=== PATIENT | male | born 1950 | race Caucasian/White ===

== ENCOUNTER 2024-10-18 06:06 | Day surgery (SDC) | payer MEDICARE, OTHER, SELFPAY ==
[2024-10-18] VITALS (12 sets, daily range): BP systolic 127–158; BP diastolic 59–95; BMI 37.0
[2024-10-18 07:14] LABS: Glucose - Point of Care 133 mg/dl (70-99)
[2024-10-18] MEDS: NSS 408 ML IV (07:15)
[2024-10-18 09:11] LABS: ACT-LR - POC 273 Seconds (116-155)
[2024-10-18] MEDS: NSS 1000 IV (09:32)
--- NOTE | 2024-10-18 09:34 | ITS.CL.CATH ---
[facility] - Catheterization
Cardiac Catheterization
Procedure Report:
CARDIAC CATHETERIZATION REPORT
Date of Procedure: 10/18/2024
Referring: Ese Kilgore M.D.
INDICATION: Known coronary artery disease, abnormal stress test, preoperative hip surgery.
PROCEDURE:
1. Left heart catheterization.
2. Coronary angiography.
3. Successful IFR of the LAD.
A total of 45 minutes of procedural/moderate sedation was utilized. An independent medical staffing coordinator was present to assist with and help manage the patient's level of consciousness and physiologic status.
ACCESS:
1. 6 Albanian right radial artery using a modified Seldinger technique.
CATHETERS:
1. 5 Albanian JR4.
2. 5 Albanian AL-1.
3. 6 Albanian JL 4 guiding catheter.
HEMODYNAMIC DATA
Weight (kg): 135.6
AO (s/d/x, mmHg): 93/63/75
LV (s/x mmHg): 93/15
LEFT VENTRICULOGRAPHY: Not performed.
CORONARY ANGIOGRAPHY
Dominance: Right.
Left Main: Short, wide, bifurcating vessel. There is no coronary artery disease.
LAD: Normal size vessel giving rise to 1 significant diagonal. There are tandem 50% lesions throughout the proximal and mid LAD with a long, tubular stenosis in the mid vessel.
Ramus: Congenitally absent.
Circumflex: Large size, nondominant vessel giving rise to 1 large obtuse marginal which subsequently bifurcates into an upper and lower branch. There is a 75% lesion in the proximal circumflex before the obtuse marginal bifurcation. There is a
subtotal occlusion of the distal AV groove circumflex. There is a 40% lesion in the origin of the upper branch of OM1.
RCA: Medium size, dominant vessel with an anterior takeoff requiring an AL-1 catheter for full engagement. There is a 90% ostial lesion.
INTERVENTION(S)
1. Successful IFR of the tandem 50% lesions in the mid LAD, demonstrating occlusive disease (IFR = 0.80).
Narrative:
The decision was made to perform physiologic testing. The diagnostic catheter was removed over a wire and exchanged for a(n) 6 Albanian JL4 guiding catheter. The guiding catheter was advanced into the ascending aorta and seated in the left main
coronary artery. Additional heparin was given to obtain an ACT greater than 250 seconds. An iFR wire was zeroed outside of the body, then inserted into the guiding sheath. The wire was advanced and the transducer was normalized just outside of the
guiding catheter tip. The wire was advanced into the mid LAD, beyond the tubular 50% lesion. Three iFR measurements were taken. The lesion was determined to be occlusive (0.80). The wire normalized on pullback, confirming the fidelity of
measurement. The catheter and guidewire were disengaged and removed over a standard J-wire.
Closure Device: Vascular band.
Radiation (mGy): 1020.63
DAP (cm2.Gy): 81.1663
Fluoroscopy time (minutes): 9.4
CONCLUSIONS
1. Right dominant circulation with an anterior takeoff of the RCA requiring an AL-1 catheter for engagement, and 90% lesion in the ostium of the right coronary artery, 75% lesion in the proximal circumflex, a 40% lesion in the origin of the upper
branch of OM1, subtotal occlusion of the terminal AV groove circumflex and an occlusive, tubular 50% lesion in the mid LAD (IFR = 0.80).
2. Top normal filling pressures (LVEDP = 15 mmHg at 135.6 kg).
RECOMMENDATIONS:
1. Expectant management after cardiac catheterization via right radial approach.
2. Limited weight bearing on the right wrist for one week.
3. Consultation with CT surgery regarding optimal revascularization strategy.
4. Aggressive secondary prevention with high-dose, high potency statin.
5. The patient would benefit from GLP-1 analogs given his diabetes and coronary artery disease combined with obesity.
Copy to: Ese Kilgore M.D., Geovany John D.O.
Gee Santos DO, FACC, FACP
[2024-10-18 09:40] LABS: Glucose - Point of Care 140 mg/dl (70-99)
== END 2024-10-18 12:25 | disposition home or self-care (01) ==
LOC: CATH 06:06
PROVIDERS: ATTENDING PHYSICIAN Internal Medicine Cardiovascular Disease; CONSULT PHYSICIAN Thoracic Surgery (Cardiothoracic Vascular Surgery); FAMILY PHYSICIAN Family Medicine; OTHER PHYSICIAN Internal Medicine Cardiovascular Disease
DX: I25.10 Atherosclerotic heart disease of native coronary artery without angina pectoris (principal); R94.39 Abnormal result of other cardiovascular function study; I10 Essential (primary) hypertension; E78.5 Hyperlipidemia, unspecified; E11.9 Type 2 diabetes mellitus without complications; E66.9 Obesity, unspecified; Z68.36 Body mass index [BMI] 36.0-36.9, adult; Z82.49 Family history of ischemic heart disease and other diseases of the circulatory system; Z79.82 Long term (current) use of aspirin; Z79.84 Long term (current) use of oral hypoglycemic drugs
CPT/HCPCS: 99152; 99153; 93799; C1769; C1894; 76937; 82962; 85347; 93005; 93458; Q9967

== ENCOUNTER → 2024-11-15 10:02 | Outpatient (REF) | payer MEDICARE, OTHER, SELFPAY ==
--- NOTE | 2024-11-15 11:21 | CARDSERVLU ---
Echocardiogram with Lumason completed after protocol screening completed. Allergies verified.
Patent IV site: _Rt wrist____
IV site flushed with 0.9% NaCl pre and post administration.
Diluted bolus method utilized to enhance visualization of ventricular hernandes.
Total volume given: ___2.0 mL
Patient tolerated all procedures well without complications.
#22 pranay placed Rt wrist. Lumason given. INT d/c'd. dsg applied and pressure held.
== END ==
LOC: RCS 10:02
PROVIDERS: ATTENDING PHYSICIAN Thoracic Surgery (Cardiothoracic Vascular Surgery); FAMILY PHYSICIAN Family Medicine
DX: Z01.810 Encounter for preprocedural cardiovascular examination (principal)
CPT/HCPCS: 93306; Q9950

== ENCOUNTER 2024-11-19 05:00 | Inpatient (IN) | payer MEDICARE, OTHER, SELFPAY ==
[2024-11-09 08:18] VITALS: BMI 39.2
[2024-11-09 09:03] LABS: % Basophils 0.7 % (0-2); % Eosinophils 5.3 % (0-6); % Immature Granulocytes 1.4 % (0-0.5); % Lymphocytes 17.4 % (20.5-51.1); % Monocytes 6.1 % (1.7-9.3); % Neutrophils 69.1 % (42.2-75.2); Absolute Basophils 0.1 10^3/uL (0-0.2); Absolute Eosinophils 0.5 10^3/uL (0-0.7); Absolute Immature Granulocytes 0.1 10^3/uL (0-0.05); Absolute Lymphocytes 1.7 10^3/uL (1.2-3.4); Absolute Monocytes 0.6 10^3/uL (0.1-0.6); Absolute Neutrophils 6.6 10^3/uL (1.4-6.5); Hematocrit 43.5 % (39.0-52.0); Mean Corp Hgb Conc. 32.2 g/dL (33.0-37.0); Mean Corpuscular Hgb 25.9 pg (27.0-31.0); Mean Corpuscular Volume 80.4 fL (80.0-94.0); Mean Platelet Volume 10.1 fL (7.4-10.4); Nucleated Red Blood Cells % 0 % (-); Platelet Count 250 10^3/uL (130-400); Red Blood Cell Count 5.41 10^6/uL (4.70-6.10); Red Cell Dist. Width 16.7 % (11.5-14.5); White Blood Cell Count 9.5 10^3/uL (4.8-10.8)
[2024-11-09 09:16] LABS: APTT 33.8 Sec (23.4-35.0); INR 1.03; PT 13.8 Sec (11.4-14.6)
[2024-11-09 09:44] LABS: ALT (SGPT) 33 U/L (0-50); AST (SGOT) 27 U/L (17-59); Albumin 3.8 g/dl (3.5-5.0); Alkaline Phosphatase 104 U/L (38-126); Blood Urea Nitrogen 18 mg/dl (9-20); Calcium 9.2 mg/dl (8.4-10.2); Carbon Dioxide 28 mmol/L (22-30); Chloride 108 mmol/L (98-107); Direct Bilirubin 0.3 mg/dl (0.0-0.4); Estimated Creatinine Clearance > 125 ml/min; Glucose 110 mg/dl (70-99); Glycohemoglobin (HgbA1c) 6.1 % (4.0-5.6); Potassium 4.7 mmol/L (3.5-5.1); Sodium 145 mmol/L (135-145); Total Bilirubin 0.8 mg/dl (0.2-1.3); Total Protein 7.4 g/dl (6.3-8.2); eGFR > 60.00
--- NOTE | 2024-11-09 10:58 | CM ---
spoke to pt and in PAT's, we discussed preop teaching including driving and sternal restrictions. he is prev indep, lives with his in a [facility] home with a first floor set up. there are 3 steps to enter. he has a cane, walker and shower
chair and he is here with crutches and explained that he had a Right hip revision in Apr that became septic, he remains on doxycycline. he needs 2 more surgeries on the right hip in the future. he did not pass his cardiac clearance and presents
for CABG. he has the cardiac educ book, soap and instructions. we disucssed his possibly needing to go to a rehab/[facility] after dc, he would be agreeable to this plan. plan is for CABG 11/19, cm role explained and all questions answered.
[2024-11-09 12:20] LABS: Urine Albumin 2+ (Neg - Trace); Urine Bilirubin Negative (Negative); Urine Character Clear (Clear); Urine Color Yellow; Urine Glucose Negative (Negative); Urine Ketone Negative (Negative); Urine Leukocyte 1+ (Negative); Urine Nitrite Negative (Negative); Urine Occult Blood Negative (Negative); Urine Urobilinogen Negative (Neg - 1+)
[2024-11-09 12:28] LABS: Urine Bacteria Few (Negative); Urine Red Blood Cell 0-2 /HPF (0-2); Urine Squamous Cell 0-2 /LPF (Few); Urine White Cell 0-2 /HPF (0-5)
[2024-11-19] VITALS (9 sets, daily range): BP systolic 96–172; BP diastolic 58–83; BMI 37.3
[2024-11-19] MEDS: BACTROBAN 2% OINTMENT 1 APPLIC NASAL ×2 (05:42→20:12)
[2024-11-19] MEDS: MAGNESIUM OXIDE 500 MG PO (05:42)
[2024-11-19] MEDS: PROTONIX 40 MG PO (05:42)
[2024-11-19] MEDS: LOPRESSOR 25 MG PO (05:42)
--- NOTE | 2024-11-19 06:14 | PTCARENOTE ---
admitted pt into 2262. Full admission and med rec completed. pt confirmed 2 showers at home and NPO since midnight. Pt clipped, washed with CHG. pre op teaching given, all questions answered
[2024-11-19 07:31] LABS: ACT+ - POC 109 Seconds (82-134)
--- NOTE | 2024-11-19 07:54 | CM ---
Reviewed chart. Mr. Nielsen is in the operating room today. Prior to admission he resides two story home with his spouse with three steps to enter. He has a first floor set-up Prior to admission he was ambulating with crutches. He has crutches,
walker, single point cane and a shower chair at home. Will need to see his current functional level to see if he will have any skilled care needs. Medical work-up in progress, The discharge plan is to return home with his spouse and a home visit
by the Transitional Care Nurse verses some level of inpatient rehab. when medically stable.
[2024-11-19 07:56] LABS: Urine Albumin 1+ (Neg - Trace); Urine Bilirubin Negative (Negative); Urine Character Clear (Clear); Urine Color Yellow; Urine Glucose Negative (Negative); Urine Ketone Negative (Negative); Urine Leukocyte Negative (Negative); Urine Nitrite Negative (Negative); Urine Occult Blood Negative (Negative); Urine Specific Gravity 1.005 (<1.030); Urine Urobilinogen Negative (Neg - 1+)
[2024-11-19 08:38] LABS: Urine Amorphous Seen; Urine Mucus Few
[2024-11-19 08:40] LABS: Urine Hyaline Cast 0-2 /LPF (0-2)
[2024-11-19 08:41] LABS: Urine Red Blood Cell 0-2 /HPF (0-2); Urine White Cell 0-2 /HPF (0-5)
[2024-11-19 09:59] LABS: ACT+ - POC 563 Seconds (82-134)
[2024-11-19 10:12] LABS: B.E. - POC 1.5 mmol/L; Glucose - POC 118 mg/dl (70-99); HCO3 - POC 27 mmol/L (21-28); Hematocrit - POC 39 % PCV (42-52); Hemodilution- POC No; Hemoglobin Calculated - POC 13.3; Lactate - POC 1.47 mmol/L (0.36-0.75); O2 Saturation %Calculated-POC 99.4 % (94-98); PCO2 - POC 46 mmHg (35-48); PO2 - POC 158 mmHg (83-108); POC Comment PRE; Potassium - POC 3.8 mmol/L (3.5-5.1); Sodium - POC 144 mmol/L (136-145); Specimen Type - POC Arterial; pH - POC 7.38 (7.35-7.45)
[2024-11-19 10:24] LABS: ACT+ - POC 554 Seconds (82-134)
[2024-11-19 10:42] LABS: B.E. - POC 0.7 mmol/L; Glucose - POC 164 mg/dl (70-99); HCO3 - POC 26 mmol/L (21-28); Hematocrit - POC 32 % PCV (42-52); Hemodilution- POC Yes; Hemoglobin Calculated - POC 10.7; Ionized Calcium - POC 1.06 mmol/L (1.15-1.33); Lactate - POC 0.68 mmol/L (0.36-0.75); PCO2 - POC 47 mmHg (35-48); PO2 - POC 403 mmHg (83-108); Potassium - POC 4.6 mmol/L (3.5-5.1); Sodium - POC 143 mmol/L (136-145); Specimen Type - POC Arterial; pH - POC 7.36 (7.35-7.45)
[2024-11-19 10:51] LABS: ACT+ - POC 453 Seconds (82-134)
[2024-11-19 11:11] LABS: B.E. - POC 2.1 mmol/L; Glucose - POC 195 mg/dl (70-99); HCO3 - POC 28 mmol/L (21-28); Hematocrit - POC 33 % PCV (42-52); Hemodilution- POC Yes; Hemoglobin Calculated - POC 11.3; Lactate - POC 1.16 mmol/L (0.36-0.75); O2 Saturation %Calculated-POC 99.9 % (94-98); PCO2 - POC 48 mmHg (35-48); PO2 - POC 286 mmHg (83-108); Potassium - POC 4.6 mmol/L (3.5-5.1); Sodium - POC 144 mmol/L (136-145); Specimen Type - POC Arterial; pH - POC 7.37 (7.35-7.45)
[2024-11-19 11:20] LABS: ACT+ - POC 504 Seconds (82-134)
[2024-11-19 11:41] LABS: B.E. - POC 3.6 mmol/L; Glucose - POC 173 mg/dl (70-99); HCO3 - POC 30 mmol/L (21-28); Hematocrit - POC 33 % PCV (42-52); Hemodilution- POC Yes; Hemoglobin Calculated - POC 11.1; Ionized Calcium - POC 1.14 mmol/L (1.15-1.33); Lactate - POC 1.58 mmol/L (0.36-0.75); O2 Saturation %Calculated-POC 99.9 % (94-98); PCO2 - POC 50 mmHg (35-48); PO2 - POC 287 mmHg (83-108); Sodium - POC 144 mmol/L (136-145); Specimen Type - POC Arterial; pH - POC 7.38 (7.35-7.45)
[2024-11-19 11:50] LABS: ACT+ - POC 429 Seconds (82-134)
[2024-11-19 12:20] LABS: B.E. - POC -0.4 mmol/L; Glucose - POC 160 mg/dl (70-99); HCO3 - POC 26 mmol/L (21-28); Hematocrit - POC 34 % PCV (42-52); Hemodilution- POC Yes; Hemoglobin Calculated - POC 11.7; Lactate - POC 2.17 mmol/L (0.36-0.75); O2 Saturation %Calculated-POC 99.9 % (94-98); PCO2 - POC 46 mmHg (35-48); PO2 - POC 339 mmHg (83-108); Potassium - POC 4.5 mmol/L (3.5-5.1); Sodium - POC 144 mmol/L (136-145); Specimen Type - POC Arterial; pH - POC 7.35 (7.35-7.45)
[2024-11-19 12:25] LABS: ACT+ - POC 433 Seconds (82-134)
[2024-11-19 13:05] LABS: B.E. - POC 1.8 mmol/L; Glucose - POC 146 mg/dl (70-99); HCO3 - POC 28 mmol/L (21-28); Hematocrit - POC 37 % PCV (42-52); Hemodilution- POC Yes; Hemoglobin Calculated - POC 12.5; Ionized Calcium - POC 1.14 mmol/L (1.15-1.33); Lactate - POC 2.39 mmol/L (0.36-0.75); O2 Saturation %Calculated-POC 99.9 % (94-98); PCO2 - POC 51 mmHg (35-48); PO2 - POC 354 mmHg (83-108); Potassium - POC 4.6 mmol/L (3.5-5.1); Sodium - POC 144 mmol/L (136-145); Specimen Type - POC Arterial; pH - POC 7.35 (7.35-7.45)
[2024-11-19 13:08] LABS: ACT+ - POC 104 Seconds (82-134)
[2024-11-19 13:12] LABS: Glucose - POC 160 mg/dl (70-99); HCO3 - POC 24 mmol/L (21-28); Hematocrit - POC 33 % PCV (42-52); Hemodilution- POC Yes; Hemoglobin Calculated - POC 11.3; Lactate - POC 2.27 mmol/L (0.36-0.75); O2 Saturation %Calculated-POC 99.9 % (94-98); PCO2 - POC 40 mmHg (35-48); PO2 - POC 256 mmHg (83-108); POC Comment POST; Sodium - POC 145 mmol/L (136-145); Specimen Type - POC Arterial; pH - POC 7.38 (7.35-7.45)
[2024-11-19] MEDS: TYLENOL PO ×2 (13:33→23:09)
--- NOTE | 2024-11-19 13:35 | W.CVOR.SURPR ---
CVOR Surgeon Immed Pre Op
-
I have examined this patient prior to performance of the scheduled procedure.
The patient's condition is unchanged from the time of the dictated/written History and
Physical and the patient is able to undergo the scheduled procedure.
--- NOTE | 2024-11-19 13:36 | W.IMMPOSTOP ---
Addendum entered and electronically signed by Matthew Bonds MD 11/19/24 16:35:
[id number]
Original Note:
Surgical Immed Post Op Note
-
CARDIAC SURGERY OPERATIVE NOTE:
Preoperative Dx:
Multivessel CAD
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
Postoperative Dx:
Same
Procedures:
1) Median sternotomy
2) Takedown of ARVIND (narrow pedicle)
3) RLE GSV harvest/prep
4) CABG x 4 (ARVIND to LAD, GSV to D1, GSV to OM1, GSV to RPDA)
5) ELAA
Surgeon:
Matthew Bonds M.D.
Assistants:
Luan Wade P.A.-C.
Caryl Campos P.A.-C.
Anesthesia:
Bernard Kathleen M.D.
Perfusion:
Fariba Elizondo C.C.P.; XC: 94min, CPB: 154min
Findings:
ARVIND was a very healthy conduit w/ serpentine course; large ELD 3.5mm; very brisk blood flow
GSV was healthy appearing conduit w/ variable wall thickness ([id number]) and variable ELD 2.5-3.5mm
LAD was visible on the epicardial surface, moderately dense scattered calcifications, minor calcifications around midpoint anastomosis; ELD 2.5mm
D1 was initially intramyocardial, but then was visible on the epicardial surface, despite a small appearing surface profile, ELD 2.5mm on arteriotomy, normal hernandes
OM1 was visible on the epicardial surface, normal hernandes w/ scant proximal calcifications, ELD 3.25mm
RPDA was visible on the epicardial surface, normal hernandes at midpoint anastomosis, ELD 2.00mm
MENDOZA was of windsock morphology w/ three distinct terminal lobes - nice visual appearance of clip at base
Good flow in all grafts on intraoperative transit-time U/S flow probe assessment
Initially bradycardic requiring temporary pacing w/ dobutamine pt. regained sinus w/ BBB in 60s
Post-ANTHONY: Normal LV/RV, stage I DD, mild MR, trace TR; MENDOZA confirmed excluded
Complications:
None; BBB
Implants:
CT x 4 (B/L pleural, inferior mediastinal, superior mediastinal)
Sternal wires x 6
Sternal 'Square' plate x 2; 4 - 14mm and 4 - 12mm screws
Sternal 'Butterfly' plate w/ 2 - 14mm and 2 - 12mm screws
Condition:
65 sinus w/ BBB; 116/45, CVP 17, 96%
GTTS: precedex 0.5, insulin 1, nicardipine 5, dobutamine 3
Stable, guarded to CVICU
[2024-11-19 14:15] LABS: Glucose - Point of Care 163 mg/dl (70-99)
--- NOTE | 2024-11-19 14:17 | W.PN.UPDATE ---
Addendum entered and electronically signed by WILI Cunningham 11/19/24 15:28:
Edit: Daptomycin to Doxycycline
Original Note:
Update Note
Progress Note Update
IV fluids:1500
Crystalloid: 1000
U.O.: 475
UF: 1300
Blood: None
Wires: None
Inotropes: Dobutamine
Pressors: None
Sedatives: precedex
NEURO: sedated on precedex, pupils +1mm B/L
RESP: #8OT @24cm> 14/550/40/8 Lungs clear B/L. 2 mediastinal (10cc on arrival) and R/L pleural (15cc on arrival) chest tubes to -20cm suction. Sanguineous drainage
CV: RRR +S1, S2, no S3, no rub, no murmur. Dermabond to median sternotomy. RIJ w/slicc
ABD: round, soft, no BS
EXT: no edema, +2/4 DP pulses B/L, no femoral bruit, Right LE DB wrap intact; Left radial A-line intact
: Shay with clear yellow urine
A/P: POD #0 s/p CABG x 4 (ARVIND to LAD, GSV to D1, GSV to OM1, GSV to RPDA)/ ELAA
ANTHONY: EF Nml
- wean and extubate
- Monitor CT and urine output
- Follow up labs and CXR
- Will start ASA tonight
- EKG pending and will send to cards
- bradycardic in OR; started on DTX
- Cards consulted
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
- Cont IV daptomycin; switch back to PO upon discharge
- Follows Dr. breann Gutiérrez at [facility]
# acute surgical blood loss anemia-expected
- trend CBC
# T2DM (A1C 6.1)
- insulin infusion x 48h
- resume metformin after insulin infusion
# Hyperlipidemia
- resume statin when tolerating PO
--- NOTE | 2024-11-19 14:19 | W.PN.CD ---
Addendum entered and electronically signed by Michael Zavala MD 11/19/24 16:37:
I saw and examined the patient.
The FOLDER MACHINE ADJUSTER's note was reviewed and I agree with the note.
Comment:
73M with CAD, HTN, HLD, & NIDDM, who had an abnormal stress test prior to orthopedic surgery (right hip revision R/T infection) which was abnormal. He had known CAD. Cardiac catheterization demonstrated MVCAD. He is S/P CABG x 4 (ARVIND to LAD, GSV to
D1, GSV to OM1, GSV to RPDA) by Dr. Bonds on 11/19/2024.
Intubated and sedated at time of my assessment. Nods to questions. Physical exam with regular rate and rhythm, no murmurs, no lower extremity edema, clear lungs.
Routine postoperative care per CT surgery. Wean dobutamine as tolerated. We will continue to follow along.
Original Note:
Today's Communication / Plan
-
Post operative mgmt per CT Surgery
Follow telemetry
Impression / Plan
-
I/P: 73M with CAD, HTN, HLD, & NIDDM, who had an abnormal stress test prior to orthopedic surgery (right hip revision R/T infection) which was abnormal. He had known CAD. Cardiac catheterization demonstrated MVCAD. He is here for CABG.
Outpatient rocket motor tester: Dr. Kilgore
CAD S/P CABG x 4 (ARVIND to LAD, GSV to D1, GSV to OM1, GSV to RPDA) by Dr. Bonds on 11/19/2024
-Pst ANTHONY without RWMA
-On dobutmaine
-EKG with sinus rhythm, first degree AV block & LBBB, LBBB is new
-Initially bradycardic requiring temporary pacing with dobutamine, now in sinus
-Follow telemetry
HTN, follow with recovery
HLD, on rosuvastatin 40mg, continue
NIDDM, Hgba1c 6.1%
Obesity, BMI 37, he would benefit from weight loss
SUBJECTIVE:
Post operative notes reviewed.
Physical Exam
Vital Signs/Labs
Vital Signs
Temp Pulse Resp BP Pulse Ox
97.7 F 65 20 159/83 94
11/19/24 05:55 11/19/24 14:10 11/19/24 05:55 11/19/24 05:55 11/19/24 14:10
11/18/24 11/19/24 11/20/24
06:59 06:59 06:59
Actual Weight 135.4 kg
PT 13.8 Sec (11.4-14.6) 11/09/24 08:29
INR 1.03 11/09/24 08:29
APTT 33.8 Sec (23.4-35.0) 11/09/24 08:29
Physical Exam
Constitutional: No acute distress and Comfortable
EENT: Anicteric and Moist mucous membranes
Cardiovascular: Rhythm & rate is regular, S1S2 is normal and Murmur/rub/gallop absent
Respiratory: Lungs clear to auscul.
GI: Soft, Distention absent, Flat and Non tender
Neuro/Psych: Other (sedated on mechanical ventilation)
Other: Skin (warm and dry)
Data Reviewed
-
Date of Service: November 19, 2024
[2024-11-19 14:22] LABS: HCO3 23.2 mmol/L (21-28); Ionized Calcium 1.17 mMOL/L (1.15-1.33); O2 Saturation % 96.6 % (94-98); PCO2 45 mmHg (35-48); PO2 73 mmHg (83-108); Potassium 4.1 mMOL/L (3.5-5.1); Sodium 138 mMOL/L (136-145); pH 7.32 (7.35-7.45)
[2024-11-19 14:25] LABS: Hematocrit 34.4 % (39.0-52.0); Hemoglobin 11.2 g/dL (13.0-18.0); Mixed Venous O2 Saturation 75.9 %; Platelet Count 174 10^3/uL (130-400)
--- NOTE | 2024-11-19 14:25 | CON.INTV ---
Consultation
Consultation Request
Date/Time Consultation Requested: 11/19
Date/Time Consultation Performed: 11/19
Reason for Consultation: Critical care
Medical History
-
History of Present Illness:
History obtained from the chart and outpatient records as patient currently intubated and sedated. 73-year-old male with history of hypertension, hyperlipidemia, who is scheduled for right hip revision for chronic infection. Patient apparently had
an episode of syncope in September, workup revealed abnormal stress test, cardiac catheterization revealed multivessel coronary disease, EF 54%. Patient is now status post CABG 11/19/2024. We are asked out from critical care standpoint. Presently
patient is on nifedipine, dobutamine. He also remains on insulin, Precedex. He remains on volume-cycled ventilation, PEEP of 8.
.
PMH: Hypertension, hyperlipidemia, diabetes, history of syncope with negative neurological workup, history of morbid obesity. There is also history of right hip replacement 2005, appendectomy 1997, left hip replacement 2011, right hip revision
2012, 2023 complicated by wound awaiting treatment
Past Medical History
Past Medical History: None (See above)
Past Surgical History: None (See above)
Social History
Tobacco: Non-smoker
Alcohol: None
Drug: None
Personal:
Living: With Family
Employment: Retired
Family History
Family History: Other (Mother from bypass surgery complications. Father from stroke/aortic aneurysm. There is a family history of aortic aneurysm. 1 brother with heart failure, 1 sister healthy)
Allergies / Home Medications
Allergies
Allergy/AdvReac Type Severity Reaction Status Date / Time
hydromorphone [From Dilaudid] Allergy Nausea / Verified 11/05/24 11:51
Vomiting
Home Medications
�Medication �Instructions �Recorded �Confirmed �Last Taken �Type
aspirin 81 mg tablet,delayed 81 mg PO DAILY Blood clot 01/30/21 11/19/24 11/18/24 07:30 History
release prevention/tx
carvedilol 12.5 mg tablet 12.5 mg PO BID Blood pressure 01/30/21 11/19/24 11/16/24 17:30 History
diclofenac sodium 75 mg 75 mg PO BID Pain 01/30/21 11/19/24 11/18/24 17:30 History
tablet,delayed release
lisinopril 40 mg tablet 40 mg PO DAILY Blood pressure 01/30/21 11/19/24 11/16/24 17:30 History
metformin 500 mg tablet 500 mg PO BID Diabetes ##0 01/30/21 11/19/24 11/18/24 17:30 Rx
acetaminophen 500 mg tablet 500 mg PO Q6H PRN pain 10/18/24 11/19/24 10/30/24 12:00 History
amlodipine 5 mg tablet 5 mg PO BID 10/18/24 11/19/24 11/16/24 17:30 History
ascorbic acid (vitamin C) 500 mg 500 mg PO DAILY 10/18/24 11/19/24 11/13/24 12:00 History
tablet (Vitamin C)
atorvastatin 40 mg tablet 40 mg PO QPM #90 tabs 10/18/24 11/19/24 11/18/24 17:30 Rx
cephalexin 500 mg capsule 500 mg PO DAILYPRN PRN dental 10/18/24 11/19/24 09/27/24 History
procedures
cholecalciferol (vitamin D3) 25 25 mcg PO QPM 10/18/24 11/19/24 11/13/24 12:00 History
mcg (1,000 unit) capsule (Vitamin
D3)
diphenhydramine HCl 50 mg capsule 50 mg PO HS PRN sleep 10/18/24 11/19/24 11/18/24 21:30 History
doxycycline hyclate 100 mg tablet 100 mg PO BID 10/18/24 11/19/24 11/18/24 21:30 History
nitroglycerin 0.4 mg sublingual 0.4 mg sublingual [id number] PRN 10/18/24 11/19/24 11/03/24 Rx
tablet chest pain #25 tabs
triamcinolone acetonide 0.1 % 1 applic topical BIDPRN PRN ECZEMA 10/18/24 11/19/24 11/18/24 07:30 History
topical cream
Turmeric-Curcumin Supplement 1 cap PO DAILY 11/05/24 11/19/24 11/13/24 12:00 History
docusate sodium 100 mg tablet 100 mg PO PRN PRN CONSTIPATION 11/05/24 11/19/24 11/18/24 07:30 History
(Stool Softener)
Review of Systems
-
Unable to Obtain full review of systems at this time due to: Patient Intubation
All other systems: Negative unless noted
Vitals / Labs / Diagnostic Testing
Vital Signs
Temp Pulse Resp BP Pulse Ox
97.7 F 65 20 159/83 94
11/19/24 05:55 11/19/24 14:10 11/19/24 05:55 11/19/24 05:55 11/19/24 14:10
Laboratory Results
11/19/24
14:13
pH 7.32 L
pCO2 45
pO2 73 L
HCO3 23.2
O2 Delivery Level
Diagnostic Testing:
Physical Exam
-
HEENT: Normocephalic, Anicteric and Other (IJ, A-line, chest tube)
Cardiovascular: S1/S2, Regular Rhythm, Murmur (n) and Rub (n)
Respiratory: Wheeze (n), Rales (n), Rhonchi (n), Non-Labored Respirations and Other (ET tube)
GI: Soft, Non Distended (Obese) and Non Tender
Neurology: Other (Sedated)
Skin: Good Color and Other (No rash)
General: Comfortable
Assessment
-
73-year-old male with history of hypertension, hyperlipidemia, diabetes, multiple orthopedic procedures in the past, with right hip revision, chronic infection, found to have episode of syncope/ischemia workup positive, now status post CAB x 4 on
4/4/25
S/p CAB x4 on 11/19/24
Multivessel coronary disease
EF 54%
Postprocedure TTE with normal biventricular function
Preprocedure echo, enlarged RV normal function, could not measure PA pressures
Postoperative anemia
Multiple right hip revisions, complicated by infection
Awaiting revision at [facility]
Postoperative left bundle branch block per EKG
Conditions present prior to admission
Hypertension/hyperlipidemia
Type 2 diabetes
History of syncope, neurowork-up negative
Family history of coronary disease, aortic aneurysm
Plan/recommendations
At this time, patient is critically ill but remains stable
He is on/off nifedipine, now on dobutamine. Right IJ in place, [place]-Amy catheter not placed chest tube output minimal
Postoperative chest x-ray patchy infiltrate noted, chest tube in place
Postoperative EKG with left bundle branch block which is new
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
Awaiting eventual right hip total revision [facility]
History of diabetes, follow blood sugars. Currently on insulin drip
Continue ventilator wean. CT surgery protocol
Presently on PEEP of 8, Vt 500, FiO2 40%
Anticipate extubation later this afternoon
DVT prophylaxis per CT surgery protocol
Reviewed with critical care nursing
TCCT 31 min
[2024-11-19 14:32] LABS: INR 1.42; PT 17.6 Sec (11.4-14.6)
[2024-11-19 14:33] LABS: APTT 35.3 Sec (23.4-35.0)
[2024-11-19 14:37] LABS: Blood Urea Nitrogen 20 mg/dl (9-20); Estimated Creatinine Clearance 112 ml/min; Glucose 161 mg/dl (70-99); Magnesium 2.5 mg/dl (1.6-2.3)
[2024-11-19 15:03] LABS: Glucose - Point of Care 168 mg/dl (70-99)
[2024-11-19] MEDS: NSS 500 IV (15:05)
[2024-11-19] MEDS: ANCEF 15 MG IV (15:06)
[2024-11-19] MEDS: CALCIUM GLUCONATE 100 IV (15:07)
[2024-11-19] MEDS: ANCEF 10 IV (15:07)
[2024-11-19] MEDS: NEURONTIN PO ×2 (15:30→23:09)
[2024-11-19] MEDS: PACERONE PO ×2 (15:30→23:09)
[2024-11-19 15:39] LABS: B.E. -2.7 mmol/L; HCO3 22.6 mmol/L (21-28); O2 Saturation % 97.9 % (94-98); PCO2 40 mmHg (35-48); PO2 81 mmHg (83-108); pH 7.36 (7.35-7.45)
--- NOTE | 2024-11-19 15:39 | PTCARENOTE ---
Patient received from CVOR s/p CABG x 4, MENDOZA clip. RIJ Cordis w/CVP transduced, L radial arterial line present - leveled, flushed, and calibrated w/good waveforms returned. Mediastinal chest tubes x 2, Y-connected to one pleurevac, L and R pleural
chest tubes Y-connected to separate pleurevac - both placed to -20cm suction w/no air leaks noted. Temp sensing da silva catheter to gravity. All procedural sites stable. Labs drawn, EKG performed, pcxr obtained. See work list for full assessment,
interventions performed, and intravenous infusions and titrations.
[2024-11-19 15:58] LABS: Glucose - Point of Care 154 mg/dl (70-99)
[2024-11-19] MEDS: OFIRMEV 100 IV (16:34)
[2024-11-19 17:03] LABS: Glucose - Point of Care 141 mg/dl (70-99)
[2024-11-19 17:06] LABS: B.E. -2.7 mmol/L; HCO3 22.6 mmol/L (21-28); Ionized Calcium 1.21 mMOL/L (1.15-1.33); O2 Saturation % 97.9 % (94-98); PCO2 40 mmHg (35-48); PO2 79 mmHg (83-108); Potassium 4.1 mMOL/L (3.5-5.1); pH 7.36 (7.35-7.45)
[2024-11-19] MEDS: ZOFRAN 4 MG IV ×2 (17:11→22:18)
--- NOTE | 2024-11-19 17:21 | RESPNOTE ---
Respiratory: patient extubated @1718 without incident. No stridor, no wheeze.
[2024-11-19] MEDS: LIPITOR PO (17:48)
[2024-11-19] MEDS: REGLAN 10 MG IV (17:50)
[2024-11-19 18:00] LABS: Glucose - Point of Care 130 mg/dl (70-99)
--- NOTE | 2024-11-19 18:04 | PTCARENOTE ---
Patient placed to CPAP wean. No apnea noted, good TV obtained. ABG obtained, results conveyed to YONG Kj. Patient able to NOBLES, follows commands. Extubated to 6lnc w/out incident, SaO2 @ 97%. Tolerated well.
[2024-11-19 18:16] LABS: Hematocrit 35.8 % (39.0-52.0); Hemoglobin 11.8 g/dL (13.0-18.0); Platelet Count 187 10^3/uL (130-400)
[2024-11-19] MEDS: VIBRAMYCIN 260 MG IV (18:16)
[2024-11-19 19:01] LABS: Glucose - Point of Care 118 mg/dl (70-99)
[2024-11-19] MEDS: ANCEF 5 IV (19:21)
[2024-11-19] MEDS: LOW STRENGTH ASPIRIN 81 MG PO (19:26)
--- NOTE | 2024-11-19 19:32 | PTCARENOTE ---
assumed care of patient @ 1900. received pt laying in bed, Aox3. Drowsy postop, responds to verbal commands, NOBLES. NSR with occasional PVCs on monitor. BP 120s/50s, CVP ~ 20. afebrile. mild c/o pain 3/10 in sternum. +pulses, no edema noted. +rub.
heart tones distant. Lungs clear, diminished satting mid 90s on 4L. taking shallow breaths. IS use encouraged. 2 med and 2 plr chest tubes to wall suction, no air leak or crepitus, mild titaling noticed. Belly round, obese, no nausea currently.
da silva with clear yellow drainage. Sternal aquacel CDI, CT dressing CDI, R thigh puncture ELECTRICAL TECHNICIAN INSTRUCTOR CDI, R SVG site maciel wrapped no drainage noted. R IJ cordis with slic, L PIV all patent. recieved on dobut at 2 , cardene at 4, insulin per protocol. pt
sleeping in between care, call morales within reach .
[2024-11-19] MEDS: SENOKOT-S PO (20:12)
[2024-11-19 21:01] LABS: Glucose - Point of Care 127 mg/dl (70-99)
[2024-11-19] MEDS: ROXICODONE 5 MG PO (21:05)
--- NOTE | 2024-11-19 21:44 | PTCARENOTE ---
Addendum entered by Edenilson Avelar RN 11/19/24 22:25:
pt with more n/v - one time zofran ordered and given .
Original Note:
pt c/o moderate pain - 5 of shon given- pt vomited ~ 50 mls of mucous about 10 minutes afterwards. after vomiting pt states nausea passed. CTPA notified
[2024-11-19 23:00] LABS: Glucose - Point of Care 113 mg/dl (70-99)
--- NOTE | 2024-11-19 23:14 | PTCARENOTE ---
pt resting in bed , BP 130s/50s on 5 of cardene, CVP ~ 10. no other change in assessment , call morales within reach .
[2024-11-19 23:58] LABS: Glucose - Point of Care 109 mg/dl (70-99)
[2024-11-20] VITALS (15 sets, daily range): BP systolic 70–151; BP diastolic 48–77; PULSE 73; O2SAT 98; BMI 38.8
[2024-11-20] MEDS: OFIRMEV 100 IV (00:22)
[2024-11-20 01:11] LABS: Glucose - Point of Care 103 mg/dl (70-99)
--- NOTE | 2024-11-20 01:20 | PTCARENOTE ---
Addendum entered by Edenilson Avelar RN 11/20/24 01:58:
BP 100s systolically and 70s on cuff. nitro put on standby
Original Note:
pulse ox 89 on 4L. encouraged deep breathing and IS. 02 still 89. CTPA ordered cardene to switch to nitro. cardene off, nitro started at 20.
[2024-11-20 02:15] LABS: Glucose - Point of Care 104 mg/dl (70-99)
[2024-11-20 02:17] LABS: Mixed Venous O2 Saturation 70.5 %
[2024-11-20 02:21] LABS: Hematocrit 33.4 % (39.0-52.0); Hemoglobin 10.9 g/dL (13.0-18.0); Mean Corp Hgb Conc. 32.6 g/dL (33.0-37.0); Mean Corpuscular Hgb 26.6 pg (27.0-31.0); Mean Corpuscular Volume 81.5 fL (80.0-94.0); Platelet Count 188 10^3/uL (130-400); Red Cell Dist. Width 16.9 % (11.5-14.5); White Blood Cell Count 14.2 10^3/uL (4.8-10.8)
[2024-11-20 02:33] LABS: Blood Urea Nitrogen 23 mg/dl (9-20); Calcium 8.4 mg/dl (8.4-10.2); Carbon Dioxide 27 mmol/L (22-30); Chloride 109 mmol/L (98-107); Estimated Creatinine Clearance 112 ml/min; Glucose 109 mg/dl (70-99); Magnesium 2.2 mg/dl (1.6-2.3); Potassium 4.6 mmol/L (3.5-5.1); Sodium 144 mmol/L (135-145); eGFR > 60.00
--- NOTE | 2024-11-20 03:00 | PTCARENOTE ---
labs drawn and sent , MVO2, Dobut decreased to 1 per CTPA. no other change in assessment .
[2024-11-20 03:08] LABS: Glucose - Point of Care 114 mg/dl (70-99)
[2024-11-20 03:22] LABS: Hepatitis C Antibody Negative (Negative)
[2024-11-20] MEDS: ANCEF 5 IV ×2 (04:55→12:12)
[2024-11-20 05:21] LABS: Glucose - Point of Care 106 mg/dl (70-99)
[2024-11-20] MEDS: NOVOLIN R INSULIN INFUSION 100 IV (05:38)
--- NOTE | 2024-11-20 06:15 | PTCARENOTE ---
dobut turned off per CTPA
[2024-11-20] MEDS: TYLENOL PO (06:36)
[2024-11-20 07:03] LABS: Glucose - Point of Care 90 mg/dl (70-99)
--- NOTE | 2024-11-20 07:09 | W.PN.CT ---
Today's Communication / Plan
-
-pod #1
-no significant issues overnight
-had nausea with narcotics- gave Ofirmev, ordered Toradol x3
-mvO2 70.5. Drips: Dobut weaned off at 5:30am, Nitro 15, Insulin
-CT outputs: 2 pleur 175/310, 2 meds 55/95 in 12/24 hrs
-deline
-d/c Shay
-continue insulin
-held Lopressor d/t recent brijesh. Monitor rhythm for brijesh
-current meds (ASA, Plavix, Lipitor, Amio, Doxycycline for chronic hip infection, Feosol, Protonix)
-encourage IS, OOB
Assessment / Plan
-
- mv-CAD - s/p CABG x 4 (ARVIND to LAD, GSV to D1, GSV to OM1, GSV to RPDA); ELAA by Dr. Bonds on 11/19/24, pod #1
- Post-ANTHONY: Normal LV/RV, stage I DD, mild MR, trace TR; MENDOZA confirmed excluded
- Initially bradycardic requiring temporary pacing w/ dobutamine pt. regained sinus w/ BBB in 60s
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
- EF 55-60%
- Hx syncope
- PVCs
- HTN/HLD
- DM II (HgA1c 6.1)
.- Chronic LE edema
- Class 2 obesity (BMI 37)
- b/l hep replacements
- L knee replacement
- Acute postop blood loss anemia - stable, no transfusion
- Acute postop atelectasis
- Acute postop hypovolemia with subsequent hypervolemia
- Suspected acute postop pericarditis/ +rub
Discussed patient care with: Nursing and Care Team
Subjective
-
Date of Service: November 20, 2024
Objective Data
-
Lab Results
11/20/24 02:10
11/20/24 02:10
PT 17.6 Sec (11.4-14.6) H 11/19/24 14:13
INR 1.42 11/19/24 14:13
APTT 35.3 Sec (23.4-35.0) H 11/19/24 14:13
Vital Signs
Vital Signs
Temp Pulse Resp BP Pulse Ox
98.3 F 72 12 105/77 92
11/20/24 02:15 11/20/24 02:16 11/20/24 02:16 11/20/24 02:01 11/20/24 02:16
CT Intake/Output/Weight
11/19/24 11/19/24 11/20/24
06:59 18:59 06:59
Intake Total 474.4 / 903.1 428.7 / 903.1
Output Total 490 / 1010 520 / 1010
Balance -15.6 / -106.9 -91.3 / -106.9
SaO2: 92
Physical Exam
-
General: Awake and AOx3
Cardiovascular: Regular rate & rhythm, No Murmurs and Rub
Respiratory: Decreased Breath Sounds
Sternum: Stable
Incision: Clean, Dry and Intact
Extremities: Edema +1
Abdomen: soft, decreased + bowel sounds, nondistended, nontender
Data Reviewed
-
Lab Results: Results Reviewed
Medications: Active Meds Reviewed
Chest X-Ray: Report Reviewed and Image Reviewed
ECG: Report Reviewed and Image Reviewed
--- NOTE | 2024-11-20 07:17 | PTCARENOTE ---
Assumed care of patient from mini shifter RN. AAO x 3 , SR on monitor, rub noted on exam. RT IJ cordis with slick, LT radial A line transducing. Lines leveled, recalibrated and flushed. Insulin and nitro infusing, see flow sheet for
titrations/totals. 4 L NC, pulse ox of 97%. Chest tubes x 4 to - 20 cm suction. No air leak or crepitus noted. Abdomen obese. Hypoactive bowel sounds noted. Denies nausea at present. Due to void. Surgical sites c,d,i. Pulses palpable. Plan
for day discussed.
[2024-11-20 08:00] LABS: Mixed Venous O2 Saturation 67.8 %
[2024-11-20] MEDS: PROTONIX 40 MG PO (08:18)
[2024-11-20] MEDS: NEURONTIN 100 MG PO ×3 (08:18→21:03)
[2024-11-20] MEDS: PLAVIX 75 MG PO (08:18)
[2024-11-20] MEDS: FEOSOL 325 MG PO (08:18)
[2024-11-20] MEDS: PACERONE 200 MG PO ×3 (08:18→21:03)
[2024-11-20] MEDS: SENOKOT-S 1 TABLET PO ×2 (08:18→19:54)
[2024-11-20] MEDS: VIBRAMYCIN 100 MG PO ×2 (08:18→19:55)
[2024-11-20] MEDS: LOW STRENGTH ASPIRIN 81 MG PO (08:19)
[2024-11-20] MEDS: MAGNESIUM OXIDE PO (08:19)
[2024-11-20] MEDS: BACTROBAN 2% OINTMENT 1 APPLIC NASAL ×2 (08:19→19:55)
[2024-11-20] MEDS: VITAMIN C 500 MG PO (08:19)
--- NOTE | 2024-11-20 08:58 | W.PN.CD ---
Today's Communication / Plan
-
- Off pressors
- Coreg and amlodipine
- ASA and Plavix.
Impression / Plan
-
I/P: 73M with CAD, HTN, HLD, & NIDDM, who had an abnormal stress test prior to orthopedic surgery (right hip revision R/T infection) which was abnormal. He had known CAD. Cardiac catheterization demonstrated MVCAD. He is here for CABG.
Outpatient event mgr: Dr. Kilgore
CAD S/P CABG x 4 (ARVIND to LAD, GSV to D1, GSV to OM1, GSV to RPDA) by Dr. Bonds on 11/19/2024
-Pst ANTHONY without RWMA
-On dobutmaine now
-Foleys removed
-Still medistinal and pleural tubes inplace.
-EKG with sinus rhythm, first degree AV block & LBBB, LBBB is new
-Initially bradycardic requiring temporary pacing with dobutamine, now in sinus
-Follow telemetry
- On AMiodarone, ASA and plavix.
HTN
-Turn off pressors now
- Continue Coreg
- Amlodipine 5 mg BID - if tolerates then can go to 10 mg QD.
HTN, follow with recovery
HLD, on rosuvastatin 40mg, continue
NIDDM, Hgba1c 6.1%
Obesity, BMI 37, he would benefit from weight loss
SUBJECTIVE:
No active complaints. in the room. Recovery adequate.
Physical Exam
Vital Signs/Labs
Vital Signs
Temp Pulse Resp BP Pulse Ox
97.8 F 75 18 113/67 97
11/20/24 08:00 11/20/24 08:00 11/20/24 08:00 11/20/24 06:01 11/20/24 08:00
11/19/24 11/20/24 11/21/24
06:59 06:59 06:59
Actual Weight 135.4 kg 140.8 kg
11/20/24 02:10
11/20/24 02:10
PT 17.6 Sec (11.4-14.6) H 11/19/24 14:13
INR 1.42 11/19/24 14:13
APTT 35.3 Sec (23.4-35.0) H 11/19/24 14:13
Magnesium 2.2 mg/dl (1.6-2.3) 11/20/24 02:10
Physical Exam
Constitutional: No acute distress and Comfortable
EENT: Anicteric and Moist mucous membranes
Cardiovascular: Rhythm & rate is regular, Pedal edema is absent and JVD pressure is normal
Respiratory: Respiratory effort normal, Wheeze Absent and Crackles Present
GI: Soft, Distention absent and Normal bowel sounds
Neuro/Psych: Oriented and AO x 3
Other: Skin
Data Reviewed
-
Date of Service: November 20, 2024
Medical Decision Making: Reviewed Test Results, Test Interpretation and Review of Case with other Provider
EKG: Tracing Personally Visualized and interpreted
Echo: Report Reviewed by me
Labs: Labs Reviewed by me
Old Records: Reviewed
Critical Care Time (in minutes): 35
[2024-11-20 09:10] LABS: Glucose - Point of Care 122 mg/dl (70-99)
[2024-11-20] MEDS: COREG 3.125 MG PO ×2 (09:10→10:44)
[2024-11-20] MEDS: NORVASC 5 MG PO ×2 (09:10→19:55)
[2024-11-20 11:08] LABS: Glucose - Point of Care 107 mg/dl (70-99)
[2024-11-20] MEDS: NSS IV (12:23)
[2024-11-20] MEDS: COREG 6.25 MG PO (12:53)
[2024-11-20 13:01] LABS: Glucose - Point of Care 152 mg/dl (70-99)
--- NOTE | 2024-11-20 13:33 | PTCARENOTE ---
Turned and repositioned, VSS. Oxygen weaned down to 2 Liters, IS to 1250. Pain well managed. Assessment otherwise unchanged from prior.
[2024-11-20] MEDS: TYLENOL 1000 MG PO ×2 (14:24→21:03)
--- NOTE | 2024-11-20 15:00 | W.PN.ANS.POP ---
Anesthesia Post Operative
- Anesthesia Post Op Note
Vital Signs Stable-See Nursing Note: Yes
Airway Patent: Yes
Adequate Pain Control: Yes
Change in Mental Status: No
Current Postoperative Nausea & Vomiting: No
Anesthesia Complications: No
General Anesthetic Recall: No
Unplanned Admission: No
Post Op Hydration Adequate: Yes
[2024-11-20 15:17] LABS: Glucose - Point of Care 84 mg/dl (70-99)
[2024-11-20] MEDS: LIPITOR 40 MG PO (16:43)
[2024-11-20 16:48] LABS: Glucose - Point of Care 89 mg/dl (70-99)
--- NOTE | 2024-11-20 17:01 | PTCARENOTE ---
RT IJ slick removed, Lt radial A line also removed. Manual pressure applied and hemostasis achieved. Assist x 3 oob to chair. Pt with difficulty transferring d/t RT Leg weakness. No significant dumping noted from chest tubes. Tolerated well
otherwise. VSS Sitting up in chair. Linens and gown changed.
--- NOTE | 2024-11-20 17:38 | W.PN.PUL3 ---
Addendum entered and electronically signed by Char Weller MD 11/21/24 15:52:
Patient transferred out of CVICU, almond blancher hand service will sign off. Please call as needed.
Original Note:
Today's Communication / Plan
-
-Continue current management
Assessment
-
73-year-old male with history of hypertension, hyperlipidemia, diabetes, multiple orthopedic procedures in the past, with right hip revision, chronic infection, found to have episode of syncope/ischemia workup positive, now status post CAB x 4 on
11/19/24
S/p CAB x4 on 11/19/24
Multivessel coronary disease
EF 54%
Postprocedure TTE with normal biventricular function
Preprocedure echo, enlarged RV normal function, could not measure PA pressures
Postoperative anemia
Multiple right hip revisions, complicated by infection
Awaiting revision at [facility]
Postoperative left bundle branch block per EKG
Conditions present prior to admission
Hypertension/hyperlipidemia
Type 2 diabetes
History of syncope, neurowork-up negative
Family history of coronary disease, aortic aneurysm
Plan/recommendations
At this time, patient is clinically improving. Extubated, off all pressors.
Cordis, right IJ in place
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
Awaiting eventual right hip total revision [facility]
History of diabetes, follow blood sugars. Currently on insulin drip, anticipate wean over coming hours.
DVT prophylaxis per CT surgery protocol
Reviewed with critical care nursing
TCCT 30 min
Subjective Data
-
Date of Service:
Date of Service: November 20, 2024
Subjective:
Patient sitting in chair, no new complaints.
Review of Systems
Genitourinary: Other (Negative except for mild throat irritation since extubation)
Objective Data
Data Reviewed
Vital Signs / I&O / Oxygen:
Vital Signs
Temp Pulse Resp BP Pulse Ox
98.2 F 78 16 151/69 96
11/20/24 15:58 11/20/24 17:04 11/20/24 16:24 11/20/24 16:38 11/20/24 15:58
Intake and Output
11/19/24 11/20/24 11/21/24
06:59 06:59 06:59
Intake Total 995.2 / 995.2 1048.2 / 1048.2
Output Total 1220 / 1220 225 / 225
Balance -224.8 / -224.8 823.2 / 823.2
SaO2 [CPAP] 93
SaO2 [SIMV] 94
SaO2 96
Nasal Cannula flow liters per 2
minute
Physical Exam
General: Comfortable
HEENT: Normocephalic
Cardiovascular: S1-S2 and Peripheral Edema (trace edema )
Respiratory: Clear
GI: Soft and Non Distended
Neurology: Awake and Alert
Labs/Micro/Reports
Lab Data
11/20/24 02:10
11/20/24 02:10
[2024-11-20 18:48] LABS: Glucose - Point of Care 166 mg/dl (70-99)
[2024-11-20] MEDS: COREG 12.5 MG PO (19:54)
[2024-11-20] MEDS: MAGNESIUM OXIDE 500 MG PO (19:54)
--- NOTE | 2024-11-20 20:20 | PTCARENOTE ---
assumed care of patient @ 1900. received pt laying in bed, Aox3. NSR on tele monitor HR 60s. BP 140s, night time BP meds given. +pulses, no edema noted. Loud rub present . Lungs clear, diminished throughout satting 97 % on 2L. 4 chest tubes to wall
suction, no air leak, tidaling or crepitus noted. Obese belly, tolerated diet today no nausea/vomiting. voiding clear yellow urine in urinal . All surgical sites CDI. Insulin running per protocol. pt resting comfortably in bed with call morales within
reach .
[2024-11-20 21:03] LABS: Glucose - Point of Care 91 mg/dl (70-99)
--- NOTE | 2024-11-20 23:00 | PTCARENOTE ---
pt resting comfortably, no change in assessment .
[2024-11-20 23:04] LABS: Glucose - Point of Care 96 mg/dl (70-99)
[2024-11-21] VITALS (18 sets, daily range): BP systolic 99–161; BP diastolic 54–82; PULSE 67–72; O2SAT 95–96; BMI 37.9
--- NOTE | 2024-11-21 00:40 | W.PN.CT ---
Today's Communication / Plan
-
-pod #2
-no overnight issues
-BP elevated yesterday, started on coreg and amlodipine, was at goal overnight
-CT outputs: 2 pleur 80/205, 2 meds 20/120 in 12/24 hrs
-diuresis yesterday, UOP 350/800 in 12/24 hrs
-continue insulin
-current meds (ASA, Plavix, Lipitor, Amio, Doxycycline for chronic hip infection, Feosol, Protonix)
-encourage IS, OOB
Assessment / Plan
-
- mv-CAD - s/p CABG x 4 (ARVIND to LAD, GSV to D1, GSV to OM1, GSV to RPDA); ELAA by Dr. Bonds on 11/19/24, pod #2
- Post-ANTHONY: Normal LV/RV, stage I DD, mild MR, trace TR; MENDOZA confirmed excluded
- Initially bradycardic requiring temporary pacing w/ dobutamine pt. regained sinus w/ BBB in 60s
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
- EF 55-60%
- Hx syncope
- PVCs
- HTN/HLD
- DM II (HgA1c 6.1)
.- Chronic LE edema
- Class 2 obesity (BMI 37)
- b/l hep replacements
- L knee replacement
- Acute postop blood loss anemia - stable, no transfusion
- Acute postop atelectasis
- Acute postop hypovolemia with subsequent hypervolemia
- Suspected acute postop pericarditis/ +rub
Subjective
-
Date of Service: November 21, 2024
Objective Data
-
PT 17.6 Sec (11.4-14.6) H 11/19/24 14:13
INR 1.42 11/19/24 14:13
APTT 35.3 Sec (23.4-35.0) H 11/19/24 14:13
Vital Signs
Vital Signs
Temp Pulse Resp BP Pulse Ox
98.5 F 63 12 119/66 98
11/20/24 23:00 11/20/24 23:45 11/20/24 23:00 11/20/24 23:03 11/20/24 23:45
CT Intake/Output/Weight
11/20/24 11/20/24 11/21/24
06:59 18:59 06:59
Intake Total 520.8 / 995.2 1048.2 / 1107.0 58.8 / 1107.0
Output Total 730 / 1220 675 / 745 70 / 745
Balance -209.2 / -224.8 373.2 / 362.0 -11.2 / 362.0
SaO2: 98
Physical Exam
-
General: Awake, Oriented and AOx3
Cardiovascular: Regular rate & rhythm
Respiratory: Clear and Decreased Breath Sounds
Sternum: Stable
Incision: Clean, Dry and Intact
Extremities: Edema +1 and No Erythema
Data Reviewed
-
Lab Results: Results Reviewed
Medications: Active Meds Reviewed
Chest X-Ray: Report Reviewed
ECG: Report Reviewed, Image Reviewed and Discussed w/ Cardiology
[2024-11-21 01:07] LABS: Glucose - Point of Care 96 mg/dl (70-99)
[2024-11-21 03:08] LABS: Glucose - Point of Care 86 mg/dl (70-99)
[2024-11-21 03:12] LABS: Hematocrit 31.8 % (39.0-52.0); Hemoglobin 10.2 g/dL (13.0-18.0); Mean Corp Hgb Conc. 32.1 g/dL (33.0-37.0); Mean Corpuscular Hgb 26.4 pg (27.0-31.0); Mean Corpuscular Volume 82.4 fL (80.0-94.0); Mean Platelet Volume 9.9 fL (7.4-10.4); Platelet Count 176 10^3/uL (130-400); Red Blood Cell Count 3.86 10^6/uL (4.70-6.10); Red Cell Dist. Width 17.6 % (11.5-14.5); White Blood Cell Count 15.5 10^3/uL (4.8-10.8)
[2024-11-21 03:23] LABS: Blood Urea Nitrogen 28 mg/dl (9-20); Calcium 8.3 mg/dl (8.4-10.2); Carbon Dioxide 29 mmol/L (22-30); Chloride 109 mmol/L (98-107); Estimated Creatinine Clearance 114 ml/min; Glucose 85 mg/dl (70-99); Magnesium 2.2 mg/dl (1.6-2.3); Potassium 4.6 mmol/L (3.5-5.1); Sodium 142 mmol/L (135-145); eGFR > 60.00
--- NOTE | 2024-11-21 03:40 | PTCARENOTE ---
labs drawn and sent . pt resting comfortably, no change in assessment .
[2024-11-21 05:13] LABS: Glucose - Point of Care 120 mg/dl (70-99)
[2024-11-21] MEDS: TYLENOL 1000 MG PO ×3 (05:32→22:15)
[2024-11-21] MEDS: COREG 12.5 MG PO ×2 (06:03→20:02)
[2024-11-21] MEDS: NORVASC 5 MG PO ×2 (06:04→20:02)
--- NOTE | 2024-11-21 06:07 | PTCARENOTE ---
BP 160s/70s- Ok to give AM BP meds early per [employer]
[2024-11-21 07:05] LABS: Glucose - Point of Care 94 mg/dl (70-99)
[2024-11-21] MEDS: PACERONE 200 MG PO ×3 (08:24→22:14)
[2024-11-21] MEDS: MAGNESIUM OXIDE 500 MG PO ×2 (08:24→20:02)
[2024-11-21] MEDS: VIBRAMYCIN 100 MG PO ×2 (08:24→20:02)
[2024-11-21] MEDS: PLAVIX 75 MG PO (08:24)
[2024-11-21] MEDS: PROTONIX 40 MG PO (08:24)
[2024-11-21] MEDS: FEOSOL 325 MG PO (08:24)
[2024-11-21] MEDS: BACTROBAN 2% OINTMENT 1 APPLIC NASAL ×2 (08:24→20:03)
[2024-11-21] MEDS: VITAMIN C 500 MG PO (08:24)
[2024-11-21] MEDS: SENOKOT-S 1 TABLET PO ×2 (08:24→20:03)
[2024-11-21] MEDS: LOW STRENGTH ASPIRIN 81 MG PO (08:24)
[2024-11-21] MEDS: NEURONTIN 100 MG PO ×3 (08:24→22:14)
--- NOTE | 2024-11-21 08:41 | PTCARENOTE ---
Assumed care of patient from security shift manager RN. AAOx 3 sitting up in the chair. Pain well managed. SR 60's on monitor. 1 L NC 95%. IS to 1250. Occasional harsh cough, non productive at present. Lungs decreased t/o. Abdomen soft and non tender.
Surgical sites well approximated. Trace anasarca appreciated. Insulin drip maintained per glycemic protocol. Plan for day discussed
[2024-11-21 09:05] LABS: Glucose - Point of Care 184 mg/dl (70-99)
[2024-11-21 10:23] LABS: Glucose - Point of Care 133 mg/dl (70-99)
--- NOTE | 2024-11-21 11:00 | PTCARENOTE ---
Chest tubes x 4 removed per md order. Pt tolerated w/o issue. Resting in bed after.
[2024-11-21 12:21] LABS: Glucose - Point of Care 87 mg/dl (70-99)
--- NOTE | 2024-11-21 12:30 | PTCARENOTE ---
Sitting up in the chair after working with PT/OT. Denies pain at present. SR on monitor. 1 L NC 96%. Assessment otherwise unchanged from prior
[2024-11-21] MEDS: NSS 500 IV (14:00)
[2024-11-21] MEDS: LANTUS 0.06 UNITS SC (14:00)
[2024-11-21 14:01] LABS: Glucose - Point of Care 167 mg/dl (70-99)
[2024-11-21 15:56] LABS: Glucose - Point of Care 168 mg/dl (70-99)
[2024-11-21] MEDS: NOVOLOG FLEXPEN-MODERATE RESISTANCE 1 UNITS SC (16:07)
--- NOTE | 2024-11-21 16:45 | PTCARENOTE ---
1600
VSS, attempt to void in urinal resulted in saturation of bed after missing urinal. PT sheets changed, CHG bath given . Pt assisted OOB to chair x 2 assist. Continues to encourage ambulation, despite pt having poor strength
[2024-11-21] MEDS: LIPITOR 40 MG PO (18:09)
--- NOTE | 2024-11-21 20:00 | PTCARENOTE ---
assumed care of patient @ 1900. received pt sitting in chair, Aox3. 3 people needed to assist pt back to bed. steady gait, however difficult to get patient out of chair . NSR on tele HR 60s. + pulses, trace generalized edema. Heart tones distant.
lungs clear, diminished satting mid 90s on room air. taking shallow breaths. IS encouraged. Obese belly, passing gas no BM yet. Surgical sites CDI. R IJ cordis and PIV patent. pt now resting comfortably in bed with call morales within reach .
[2024-11-21 22:14] LABS: Glucose - Point of Care 123 mg/dl (70-99)
--- NOTE | 2024-11-21 23:37 | PTCARENOTE ---
pt resting comfortably in bed, call morales within reach , no change in assessment .
[2024-11-22] VITALS (9 sets, daily range): BP systolic 96–133; BP diastolic 59–87; PULSE 72; O2SAT 99; BMI 38.0
--- NOTE | 2024-11-22 00:42 | W.PN.CT ---
Today's Communication / Plan
-
-pod #3
-no overnight issues
-BP elevated yesterday, on coreg and amlodipine, starting lisinopril today
-CTs DCd
-current meds (ASA, Plavix, Lipitor, Amio, Doxycycline for chronic hip infection, Feosol, Protonix)
-encourage IS, OOB
Assessment / Plan
-
- mv-CAD - s/p CABG x 4 (ARVIND to LAD, GSV to D1, GSV to OM1, GSV to RPDA); ELAA by Dr. Bonds on 11/19/24, pod #3
- Post-ANTHONY: Normal LV/RV, stage I DD, mild MR, trace TR; MENDOZA confirmed excluded
- Initially bradycardic requiring temporary pacing w/ dobutamine pt. regained sinus w/ BBB in 60s
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
- EF 55-60%
- Hx syncope
- PVCs
- HTN/HLD
- DM II (HgA1c 6.1)
.- Chronic LE edema
- Class 2 obesity (BMI 37)
- b/l hep replacements
- L knee replacement
- Acute postop blood loss anemia - stable, no transfusion
- Acute postop atelectasis
- Acute postop hypovolemia with subsequent hypervolemia
- Suspected acute postop pericarditis/ +rub
Subjective
-
Date of Service: November 22, 2024
Objective Data
-
PT 17.6 Sec (11.4-14.6) H 11/19/24 14:13
INR 1.42 11/19/24 14:13
APTT 35.3 Sec (23.4-35.0) H 11/19/24 14:13
Vital Signs
Vital Signs
Temp Pulse Resp BP Pulse Ox
98.7 F 62 14 129/73 91
11/21/24 20:00 11/21/24 23:30 11/21/24 23:00 11/21/24 23:23 11/21/24 23:30
CT Intake/Output/Weight
11/21/24 11/21/24 11/22/24
06:59 18:59 06:59
Intake Total 603.8 / 1652.0 772.7 / 1302.7 530 / 1302.7
Output Total 465 / 1140 20 / 420 400 / 420
Balance 138.8 / 512.0 752.7 / 882.7 130 / 882.7
SaO2: 91
Physical Exam
-
General: Awake, Oriented and AOx3
Cardiovascular: Regular rate & rhythm, No Murmurs and No Rub
Respiratory: Clear and Equal
Sternum: Stable
Incision: Clean and Dry
Extremities: No Edema and No Erythema
Data Reviewed
-
Lab Results: Results Reviewed
Medications: Active Meds Reviewed
Chest X-Ray: Report Reviewed
[2024-11-22 04:03] LABS: Hematocrit 31.1 % (39.0-52.0); Hemoglobin 10.1 g/dL (13.0-18.0); Mean Corp Hgb Conc. 32.5 g/dL (33.0-37.0); Mean Corpuscular Hgb 26.5 pg (27.0-31.0); Mean Corpuscular Volume 81.6 fL (80.0-94.0); Mean Platelet Volume 10.7 fL (7.4-10.4); Platelet Count 183 10^3/uL (130-400); Red Blood Cell Count 3.81 10^6/uL (4.70-6.10); Red Cell Dist. Width 17.7 % (11.5-14.5); White Blood Cell Count 12.5 10^3/uL (4.8-10.8)
--- NOTE | 2024-11-22 04:04 | PTCARENOTE ---
labs drawn and sent, pt resting comfortably , no change in assessment .
[2024-11-22 04:27] LABS: Blood Urea Nitrogen 24 mg/dl (9-20); Calcium 8.3 mg/dl (8.4-10.2); Carbon Dioxide 26 mmol/L (22-30); Chloride 108 mmol/L (98-107); Estimated Creatinine Clearance 113 ml/min; Glucose 121 mg/dl (70-99); Potassium 4.2 mmol/L (3.5-5.1); Sodium 140 mmol/L (135-145); eGFR > 60.00
[2024-11-22] MEDS: TYLENOL 1000 MG PO ×3 (06:17→22:07)
[2024-11-22 07:30] LABS: Glucose - Point of Care 125 mg/dl (70-99)
[2024-11-22] MEDS: NOVOLOG FLEXPEN-MODERATE RESISTANCE SC ×3 (07:31→16:33)
--- NOTE | 2024-11-22 08:00 | PTCARENOTE ---
resumed care of patient from prev RN. pt oob sitting in chair at time of assessment. AAOx3. VSS. NSR on tele HR 60s. + pulses, trace edema. 95% RA. diminished at bases. IS encouraged. +gas. + appetite. no bm. urinating in urinal with assistance.
Surgical sites CDI. R IJ cordis and PIV patent. will continue to monitor.
[2024-11-22] MEDS: PROTONIX 40 MG PO (09:14)
[2024-11-22] MEDS: PLAVIX 75 MG PO (09:14)
[2024-11-22] MEDS: VIBRAMYCIN 100 MG PO ×2 (09:14→19:27)
[2024-11-22] MEDS: MAGNESIUM OXIDE 500 MG PO ×2 (09:14→19:26)
[2024-11-22] MEDS: SENOKOT-S 1 TABLET PO ×2 (09:15→19:26)
[2024-11-22] MEDS: LOW STRENGTH ASPIRIN 81 MG PO (09:15)
[2024-11-22] MEDS: FEOSOL 325 MG PO (09:15)
[2024-11-22] MEDS: NEURONTIN 100 MG PO ×3 (09:15→22:06)
[2024-11-22] MEDS: NORVASC 5 MG PO ×2 (09:16→19:27)
[2024-11-22] MEDS: VITAMIN C 500 MG PO (09:16)
[2024-11-22] MEDS: COREG 12.5 MG PO ×2 (09:17→19:26)
[2024-11-22] MEDS: PACERONE 200 MG PO ×3 (09:17→22:06)
[2024-11-22] MEDS: ZESTRIL 5 MG PO (09:17)
[2024-11-22] MEDS: BACTROBAN 2% OINTMENT 1 APPLIC NASAL ×2 (09:18→19:28)
[2024-11-22] MEDS: LANTUS 0.06 UNITS SC (09:22)
--- NOTE | 2024-11-22 09:43 | W.PN.CD ---
Today's Communication / Plan
-
progressing well
cont. to ambulate
remove cordis
could use some diruesis
Impression / Plan
-
I/P: 73M with CAD, HTN, HLD, & NIDDM, who had an abnormal stress test prior to orthopedic surgery (right hip revision R/T infection) which was abnormal. He had known CAD. Cardiac catheterization demonstrated MVCAD. He is here for CABG.
Outpatient first line production supervisor: Dr. Kilgore
CAD S/P CABG x 4 (ARVIND to LAD, GSV to D1, GSV to OM1, GSV to RPDA) by Dr. Bonds on 11/19/2024
-Pst ANTHONY without RWMA
-Brief post op dobutamine, now off
-all tubes/drains removed, still has corids, can dc
-Initially bradycardic requiring temporary pacing with dobutamine, now in sinus
-Follow telemetry
-On Amiodarone, ASA and plavix
-mild volume overload with GILDARDO, consider diuresis
HTN
-cont amlodipine, coreg, lisinopril
HLD, on rosuvastatin 40mg, continue
NIDDM, Hgba1c 6.1%
Obesity, BMI 37, he would benefit from weight loss
SUBJECTIVE:
Some dizziness with ambulation.
Physical Exam
Vital Signs/Labs
Vital Signs
Temp Pulse Resp BP Pulse Ox
36.9 C 76 18 133/73 92
11/22/24 08:00 11/22/24 09:16 11/22/24 08:00 11/22/24 03:29 11/22/24 08:00
11/21/24 11/22/24 11/23/24
06:59 06:59 06:59
Actual Weight 137.6 kg 137.8 kg
11/22/24 03:39
11/22/24 03:39
PT 17.6 Sec (11.4-14.6) H 11/19/24 14:13
INR 1.42 11/19/24 14:13
APTT 35.3 Sec (23.4-35.0) H 11/19/24 14:13
Magnesium 2.0 mg/dl (1.6-2.3) 11/22/24 03:39
Physical Exam
Constitutional: No acute distress
Cardiovascular: Rhythm & rate is regular
Respiratory: Respiratory effort normal
Neuro/Psych: AO x 3
Data Reviewed
-
Date of Service: November 22, 2024
Medical Decision Making: Reviewed Test Results
EKG: Tracing Personally Visualized and interpreted
X-Ray/CT/US/MRI/NUC/PET: Image Personally Visualized and interpreted
Labs: Labs Reviewed by me
[2024-11-22] MEDS: LASIX 40 MG IV (12:27)
[2024-11-22] MEDS: NSS IV (12:28)
[2024-11-22] MEDS: KCL 20 MEQ PO (12:28)
--- NOTE | 2024-11-22 13:54 | CM ---
Reviewed chart. Met with and Mrs. Nielsen to review discharge plans. He states h is feeling well. We reviewed the team recommendations of acute rehab. We reviewed the acute rehab. They have selected [facility] at [place]. Telephone
call tp [facility] Liaison to make the referral. Sent referral. Awaiting decision fro [facility]. Medical work-up in progress. The discharge plan is to go to [facility] at [place] if bed available when medically stable.
--- NOTE | 2024-11-22 15:46 | PTCARENOTE ---
worked with pt/ot and required me as well to get patient transferred out of chair. once up and walking did okay with walker. manuel d/c'd. at bedside. will continue to monitor.
[2024-11-22 16:24] LABS: Glucose - Point of Care 121 mg/dl (70-99)
[2024-11-22] MEDS: GLUCOPHAGE 500 MG PO (16:32)
[2024-11-22] MEDS: LIPITOR 40 MG PO (18:37)
--- NOTE | 2024-11-22 19:15 | PTCARENOTE ---
Patient received from RN @1900. Patient lying in bed comfortably w/ call morales in reach. AOx3 NSR w/ prolonged QT. VSS. Heart sounds distant. Radial and pedal pulses present bilaterally. +1 generalized anasarca.. POX 94% RA. Lungs clear
anteriorly bilaterally. IS 2500. Voiding clear yellow urine WNL. No BM noted. Bowel sounds normoactive. Sternal dressing dry and intact. CT dressing dry and intact. Right groin puncture and right knee incision approximated and SHOT CORE DRILL OPERATOR. Left PIV
patent and intact. Plan of care explained and questions encouraged.
[2024-11-22 23:18] LABS: Glucose - Point of Care 114 mg/dl (70-99)
[2024-11-23] VITALS (11 sets, daily range): BP systolic 97–137; BP diastolic 49–90; PULSE 69–70; O2SAT 98; BMI 37.0
--- NOTE | 2024-11-23 00:22 | PTCARENOTE ---
Patient assessment unchanged. Dipped into sinus bradycardia. VSS. HS blood sugar obtained.
[2024-11-23 03:47] LABS: Hematocrit 31.6 % (39.0-52.0); Hemoglobin 10.2 g/dL (13.0-18.0); Mean Corp Hgb Conc. 32.3 g/dL (33.0-37.0); Mean Corpuscular Hgb 26.3 pg (27.0-31.0); Mean Corpuscular Volume 81.4 fL (80.0-94.0); Mean Platelet Volume 10.4 fL (7.4-10.4); Platelet Count 200 10^3/uL (130-400); Red Blood Cell Count 3.88 10^6/uL (4.70-6.10); Red Cell Dist. Width 17.6 % (11.5-14.5)
[2024-11-23 04:14] LABS: Blood Urea Nitrogen 26 mg/dl (9-20); Calcium 8.4 mg/dl (8.4-10.2); Carbon Dioxide 28 mmol/L (22-30); Chloride 107 mmol/L (98-107); Estimated Creatinine Clearance 113 ml/min; Glucose 107 mg/dl (70-99); Magnesium 2.1 mg/dl (1.6-2.3); Potassium 4.4 mmol/L (3.5-5.1); Sodium 141 mmol/L (135-145); eGFR > 60.00
--- NOTE | 2024-11-23 04:30 | W.PN.CT ---
Today's Communication / Plan
-
Plan:
-No major issues overnight. Hemodynamically and neurologically intact
-Off all drips
-BP better controlled after adjustments to antihypertensive meds (Coreg, Norvasc, Lisinopril), also got Lasix
-F/U 2-view cxr
-Cont. current meds (ASA, Plavix, Lipitor, Amio, Doxycycline for chronic hip infection, Feosol, Protonix, Coreg, Norvasc, Lisinopril)
-Check wt and consider Lasix
-Encourage use of IS
-OOB into chair/Ambulate as tolerated/PT/OT f/u
-Awaiting bed at [facility] placement
Assessment / Plan
-
- mv-CAD - s/p CABG x 4 (ARVIND to LAD, GSV to D1, GSV to OM1, GSV to RPDA); ELAA by Dr. Bonds on 11/19/24, pod #4
- Post-ANTHONY: Normal LV/RV, stage I DD, mild MR, trace TR; MENDOZA confirmed excluded
- Initially bradycardic requiring temporary pacing w/ dobutamine pt. regained sinus w/ BBB in 60s
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
- EF 55-60%
- Hx syncope
- PVCs
- HTN/HLD
- DM II (HgA1c 6.1)
.- Chronic LE edema
- Class 2 obesity (BMI 37)
- b/l hep replacements
- L knee replacement
- Acute postop blood loss anemia - stable, no transfusion
- Acute postop atelectasis
- Acute postop hypovolemia with subsequent hypervolemia
- Suspected acute postop pericarditis/ +rub
Discussed patient care with: Cardiology, Nursing, Respiratory Therapy, Pharmacy and Care Team
Subjective
-
Date of Service: November 23, 2024
Pt c/o mild incisional pain, otherwise feels well
Objective Data
-
Lab Results
11/23/24 03:31
11/23/24 03:31
PT 17.6 Sec (11.4-14.6) H 11/19/24 14:13
INR 1.42 11/19/24 14:13
APTT 35.3 Sec (23.4-35.0) H 11/19/24 14:13
Vital Signs
Vital Signs
Temp Pulse Resp BP Pulse Ox
98.2 F 58 16 101/57 95
11/23/24 00:00 11/23/24 04:20 11/23/24 00:00 11/23/24 03:34 11/23/24 04:20
CT Intake/Output/Weight
11/22/24 11/22/24 11/23/24
06:59 18:59 06:59
Intake Total 580 / 1352.7 270 / 510 240 / 510
Output Total 800 / 820 1350 / 2250 900 / 2250
Balance -220 / 532.7 -1080 / -1740 -660 / -1740
SaO2: 95 (RA)
Physical Exam
-
General: Awake, Oriented and AOx3
Cardiovascular: Regular rate & rhythm, No Murmurs, No Rub and No Gallop
Respiratory: Decreased Breath Sounds (at bases, otherwise clear)
Sternum: Stable
Incision: Clean, Dry, Intact and Dressing Intact
Extremities: Edema +1
Data Reviewed
-
Lab Results: Results Reviewed
Medications: Active Meds Reviewed
Chest X-Ray: Report Reviewed and Image Reviewed
ECG: Report Reviewed and Image Reviewed
--- NOTE | 2024-11-23 04:38 | PTCARENOTE ---
Patient reassessed. VSS. Labs drawn. CHG cloth bath given. CT dressing changed.
[2024-11-23] MEDS: TYLENOL 1000 MG PO ×3 (05:59→22:53)
[2024-11-23 07:53] LABS: Glucose - Point of Care 120 mg/dl (70-99)
--- NOTE | 2024-11-23 08:00 | PTCARENOTE ---
resumed care of patient from prev RN. pt oob sitting in chair at time of assessment. AAOx3. VSS. NSR on tele HR 60s. + pulses, +1 gen edema. 97% RA. diminished at bases. IS to 1999. +gas. + appetite. urinating in urinal with assistance. Surgical
sites CDI. PIV patent. No pain reported. will continue to monitor.
[2024-11-23] MEDS: MAGNESIUM OXIDE 500 MG PO ×2 (08:06→19:28)
[2024-11-23] MEDS: VIBRAMYCIN 100 MG PO ×2 (08:06→19:28)
[2024-11-23] MEDS: SENOKOT-S 1 TABLET PO ×2 (08:06→19:28)
[2024-11-23] MEDS: LOW STRENGTH ASPIRIN 81 MG PO (08:06)
[2024-11-23] MEDS: GLUCOPHAGE 500 MG PO ×2 (08:07→16:59)
[2024-11-23] MEDS: PLAVIX 75 MG PO (08:07)
[2024-11-23] MEDS: PROTONIX 40 MG PO (08:07)
[2024-11-23] MEDS: NEURONTIN 100 MG PO ×3 (08:07→22:54)
[2024-11-23] MEDS: FEOSOL 325 MG PO (08:08)
[2024-11-23] MEDS: VITAMIN C 500 MG PO (08:08)
[2024-11-23] MEDS: ZESTRIL 5 MG PO (08:08)
[2024-11-23] MEDS: NORVASC 5 MG PO ×2 (08:09→19:28)
[2024-11-23] MEDS: COREG 12.5 MG PO ×2 (08:09→19:28)
[2024-11-23] MEDS: PACERONE 200 MG PO ×3 (08:09→22:56)
[2024-11-23] MEDS: BACTROBAN 2% OINTMENT 1 APPLIC NASAL (08:10)
[2024-11-23] MEDS: NSS IV (08:11)
[2024-11-23] MEDS: NOVOLOG FLEXPEN-MODERATE RESISTANCE SC ×3 (08:12→16:59)
[2024-11-23 12:37] LABS: Glucose - Point of Care 124 mg/dl (70-99)
--- NOTE | 2024-11-23 14:23 | PTCARENOTE ---
worked with pt/ot and required me as well to get patient transferred out of chair. at bedside. will continue to monitor. additional cushion on couch.
[2024-11-23] MEDS: MILK OF MAGNESIA 30 ML PO (15:02)
--- NOTE | 2024-11-23 15:19 | CM ---
Reviewed chart. Met with and Mrs. Nielsen to review discharge plans. [facility] states he has been approved for admission and can accept on Friday11/24/24 if
medically stable. Updated Mr. and Mrs. Nielsen, R.N., and P.A. Medical work-up in progress. [facility] [place] when medically stable.
--- NOTE | 2024-11-23 16:00 | PTCARENOTE ---
pt VSS, assessment unchanged from previous RN. pt offers no c/o pain. voids in urinal.
[2024-11-23 16:57] LABS: Glucose - Point of Care 124 mg/dl (70-99)
[2024-11-23] MEDS: LIPITOR 40 MG PO (16:59)
--- NOTE | 2024-11-23 18:15 | CON.MD ---
Documented by User: Peyton Aranda PA-C 11/23/24 18:57
Consultation - Medical
-
Referring Provider:�Dr. Bonds
Chief Complaint:�Status post CABG x 4, debility
�
History of Present Illness:�Patient is 73-year-old male with PMH of (CAD, hypertension, hyperlipidemia, H/o syncope, PVCs ,oey-tacymjn-awqsbdjzt diabetes) who had a right hip revision in April 2024 that became septic. He remains on doxycycline.
Requires 2 more surgeries on the right hip in the near future. However, he had an abnormal stress test pre cardiac clearance that required cardiac catheterization demonstrating MV CAD. He underwent CABG x4 on 11/19/[address] Bonds. Post ANTHONY
without RWMA. Brief use of Dobutamine and temporary pacing for initial bradycardia now in sinus rhythm. Subsequently had acute postop blood loss anemia without any transfusion, atelectasis, hypovolemia with subsequent hypovolemia. He is on
amiodarone, aspirin and Plavix. He has some dizziness with ambulation. Per cardiothoracic surgery- suspicious for post op pericarditis, + rub. Requested 2 view chest x-ray. Patient off all drips.
Patient without complaints on floor. Looks forward to starting rehabilitation. Denies chest pain, sob, dizziness. Reports last bowel movement on Friday prior to hospitalization. Voiding in urinal . Denies urinary incontinence.
�
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
Procedure History:�s/p CABG x [address] Bonds on 11/19/24, right hip replacement, right total hip revision in April and became septic, left hip replacement, left knee replacement,
Family History:�Father�, stroke, aortic aneurysm. Mother� at during bypass surgery, 1 brother�of CHF
�
Social History:�
Functional Level Premorbidly:�Assist with ADLs, tub transfers, uses crutches for community mobility, rolling walker for household mobility
Functional Level Currently:�Eating, grooming�set up, toileting, lower extremity care�dependent, bed mobility�sit to stand from bedside max assist x 3, second attempt max assist required 2 people.
�
Tobacco:�Denies�
Alcohol:�Denies�
Drug use:�Denies�
�
Lives with:�Spouse
24-hour assistance available:�
Number of floors:�2
# steps to enter:�3
# steps to second floor:FF
Potential First floor set up:�Yes
Driving:�no
Occupation:�Retired
�
�
Allergies:�
Allergy/AdvReac Type Severity Reaction Status Date / Time
hydromorphone [From Dilaudid] Allergy Nausea / Verified 11/05/24 11:51
Vomiting
�
Review of Systems:�
Constitutional: (x) abNormal _fatigue
Eye: (x) Normal _
Ear/Nose/Throat: (x) Normal _
Respiratory: (x) Normal _
Cardiovascular: (x) abNormal _s/p cabg, cad
Gastrointestinal: (x) abNormal _constipation
Genitourinary: (x) Normal _
Musculoskeletal: (x) abNormal _right hip prosthetic infection, right hip pain and weakness
Integumentary: (x) Normal _
Neurologic: (x) Normal _
Psychiatric: (x) Normal _
Endocrine: (x) abNormal _DM
Hematologic/Lymphatic: (x) Normal _
Allergic/Immunologic: (x) Normal _
�
Medications:�
Active Current Visit Medication List
Category Date Time Status
0.9% Sodium Chloride 500 ml [Nss] 500 ml Med 11/19/24 13:10 Active
IV CORDIS
Acetaminophen [Tylenol] Med 11/19/24 14:00 Active
1,000 mg PO TID@0600,1400,2200
Acetaminophen [Tylenol] Med 11/19/24 13:10 Active
650 mg PO Q4HPRN PRN
Amiodarone [Pacerone] Med 11/19/24 16:00 Active
200 mg PO TID
Amlodipine [Norvasc] Med 11/20/24 20:00 Active
5 mg PO BID
Ascorbic Acid [Vitamin C] Med 11/20/24 08:00 Active
500 mg PO DAILY
Aspirin Chewable [Low Strength Aspirin] Med 11/20/24 08:00 Active
81 mg PO DAILY
Atorvastatin [Lipitor] Med 11/19/24 18:00 Active
40 mg PO QPM
Bisacodyl [Dulcolax] Med 11/19/24 13:10 Active
10 mg RECTAL DAILYPRN PRN
Carvedilol [Coreg] Med 11/20/24 20:00 Active
12.5 mg PO BID
Clopidogrel Bisulfate [Plavix] Med 11/20/24 08:00 Active
75 mg PO DAILY
Cyclobenzaprine HCl [Flexeril] Med 11/19/24 13:10 Active
5 mg PO Q8HPRN PRN
Dextrose 50%-Water [Dextrose 50% Syringe] Med 11/21/24 12:51 Active
12.5 grams IV [id number] PRN
Docusate W/Senna [Senokot-S] Med 11/19/24 20:00 Active
1 tablet PO Q12
Doxycycline [Vibramycin] Med 11/20/24 08:00 Active
100 mg PO Q12
Ferrous Sulfate [Feosol] Med 11/20/24 08:00 Active
325 mg PO DAILY
Flush (0.9% Sodium Chloride) [Flush (Nss)] Med 11/20/24 09:00 Active
See Dose Instructions IV PER PROTOCOL
Gabapentin [Neurontin] Med 11/19/24 16:00 Active
100 mg PO TID
Glucagon [GlucaGen] Med 11/21/24 12:51 Active
1 mg IM PRN PRN
Insulin Aspart Corrective Mod [Novolog Flexpen-Moderate Med 11/21/24 16:30 Active
Resistance]
See Protocol SC AC
Ketorolac [Toradol] Med 11/20/24 01:02 Active
15 mg IV Q6HPRN PRN
Lidocaine [Lidocaine 4% Patch] Med 11/20/24 08:00 Active
1 patch TOPICAL DAILY
Lisinopril [Zestril] Med 11/22/24 08:00 Active
5 mg PO DAILY
METFORMIN HCl [Glucophage] Med 11/22/24 17:00 Active
500 mg PO BID@0800,1700
Magnesium Hydroxide [Milk of Magnesia] Med 11/19/24 13:10 Active
30 ml PO BIDPRN PRN
Magnesium Oxide Med 11/20/24 08:00 Active
500 mg PO BID
Metoclopramide [Reglan] Med 11/19/24 17:41 Active
10 mg IV Q6HPRN PRN
Oxycodone [Roxicodone] Med 11/19/24 13:10 Active
2.5 mg PO Q4HPRN PRN
Oxycodone [Roxicodone] Med 11/19/24 13:10 Active
5 mg PO Q4HPRN PRN
Pantoprazole [Protonix] Med 11/20/24 08:00 Active
40 mg PO DAILY
Remove Patch [Remove Lidocaine Patch] Med 11/20/24 20:00 Active
1 patch REMOVE DAILY@1999
�
Vitals:�
Temp Pulse Resp BP Pulse Ox
97.8 F 64 18 111/58 96
11/23/24 15:12 11/23/24 15:04 11/23/24 15:12 11/23/24 15:04 11/23/24 15:12
Height 6 ft 3 in
Actual Weight 134.2 kg
Body Mass Index (BMI) 37.0
�
Physical Exam:�
General Appearance/Observation: Well-developed, well-nourished individual in no apparent distress.� Lying in bed comfortably
Pain/Comfort Assessment: Incisional pain- sternal
Mood/Affect: Appropriate, pleasant�
Integumentary/Operative Site:�Sternal and drain sites with dressings, right upper thigh with ecchymosis
�� Pressure Ulcer Evaluation: Not visualized due to teds and extra socks
��
�� Other Type of Wound: �
��
Eyes: Conjunctiva/Lids: normal. Mild ptosis on the left� Pupils: pupils equal round and reactive to light and Accommodation�
Ears/Nose/Throat: oral mucosa moist,� throat clear.������������ Lips/Teeth/Gums: normal�
Neck: No muscle spasm or tenderness�
Cardiovascular: Heart: regular, no murmur�
Pulses: dorsalis pedis 1+ bilaterally�
Respiratory: Respiratory Effort/Chest Expansion: normal������� Auscultation: Clear to auscultation bilaterally�
Gastrointestinal: abdomen not tender, no distension, girth, obese, normal abdominal bowel sounds
Genitourinary: No Shay�
Extremities:�Edema: right leg/foot edema more than LLE�Cyanosis: None�Trophic�changes: None
Skin: abdominal fold and right groin with redness�
Neurology Exam:
Orientation: Alert, Oriented to self, Time, Place�
Memory: Intact for immediate concerns
Comprehension: Intact
Two step command: Intact
Naming: Intact
Cranial Nerves:
�� CNII:�Pupillary light reflex: Intact����Visual Field: Intact
�� CN III, IV, : Extraocular muscles: Intact�, slow to follow
�� CN V:�Facial Sensation�at�Forehead: Intact,�Maxilla: Intact,�Mandible: Intact
�� CN VII:�Facial movement: Symmetric
�� CN VIII:�Hearing: Normal
�� CN IX/X:�Speech & swallow: Normal,�Position of Uvula: Midline
�� CN XI:�Shoulder shrug: Symmetric
�� CN XII:�Tongue protrusion: Midline
Sensory:
�� Light touch: Intact in bilateral upper and lower extremities
�
�
Reflexes:
�� Biceps: 1+ bilaterally
�� Brachioradialis: absent bilaterally
�� Triceps: 1+ bilaterally
�� Patellar: 1+ bilaterally
�� Achilles: absent bilaterally
�� Babinski: NT
�� Clonus: NT
�� Ashlyn: Negative bilaterally�
Cerebellar: Dysmetria/Ataxia: None�
Musculoskeletal:
Motor: (Manual muscle scale 0-5)�
Muscle SA EF WE EE FF FA HF KE DF EHL PF
Right� 4 4 4 5 5 2 2 4 5 4
Left 4 4 4 5 5 4 4 5 5 5
�
Tone: Normal in all extremities�
Range of Motion: Passively within normal limits in all extremities�, deferred bilateral upper extremity due to recent cardiac surgery. Limited ROM of right ankle due to h/o fx
�
Lab Results
Labs
WBC 11.0 10^3/uL (4.8-10.8) H 11/23/24 03:31
RBC 3.88 10^6/uL (4.70-6.10) L 11/23/24 03:31
Hgb 10.2 g/dL (13.0-18.0) L 11/23/24 03:31
Hct 31.6 % (39.0-52.0) L 11/23/24 03:31
MCV 81.4 fL (80.0-94.0) 11/23/24 03:31
MCH 26.3 pg (27.0-31.0) L 11/23/24 03:31
MCHC 32.3 g/dL (33.0-37.0) L 11/23/24 03:31
RDW 17.6 % (11.5-14.5) H 11/23/24 03:31
Plt Count 200 10^3/uL (130-400) 11/23/24 03:31
MPV 10.4 fL (7.4-10.4) 11/23/24 03:31
Abs Immat Gran (auto) 0.1 10^3/uL (0-0.05) H 11/09/24 08:29
Absolute Neuts (auto) 6.6 10^3/uL (1.4-6.5) H 11/09/24 08:29
Absolute Lymphs (auto) 1.7 10^3/uL (1.2-3.4) 11/09/24 08:
Absolute Monos (auto) 0.6 10^3/uL (0.1-0.6) 11/09/24 08:
Absolute Eos (auto) 0.5 10^3/uL (0-0.7) 11/09/24:
Absolute Basos (auto) 0.1 10^3/uL (0-0.2) 11/09/24 08:
Immature Gran % 1.4 % (0-0.5) H 11/09/24:
Neutrophils % 69.1 % (42.2-75.2) 11/09/24 08:
Lymphocytes % 17.4 % (20.5-51.1) L 11/09/24:
Monocytes % 6.1 % (1.7-9.3) 11/09/24 08:
Eosinophils % 5.3 % (0-6) 11/09/24 08:
Basophils % 0.7 % (0-2) 11/09/24:
Nucleated RBC % 0 % (-) 11/09/24 08:29
PT 17.6 Sec (11.4-14.6) H 11/19/24 14:13
INR 1.42 11/19/24 14:13
APTT 35.3 Sec (23.4-35.0) H 11/19/24 14:13
pH 7.36 (7.35-7.45) 11/19/24 17:00
pCO2 40 mmHg (35-48) 11/19/24 17:00
pO2 79 mmHg (83-108) L 11/19/24 17:00
HCO3 22.6 mmol/L (21-28) 11/19/24 17:00
Base Excess -2.7 mmol/L 11/19/24 17:00
ABG O2 Sat (Measured) 97.9 % (94-98) 11/19/24 17:00
POC ABG O2 Sat (Calc) 99.9 % (94-98) H 11/19/24 13:07
Mixed VBG O2 Saturation 67.8 % 11/20/24 07:50
Sodium 138 mMOL/L (136-145) 11/19/24 14:13
Potassium 4.1 mMOL/L (3.5-5.1) 11/19/24 17:00
O2 Delivery Level 11/19/24 17:00
Sodium 141 mmol/L (135-145) 11/23/24 03:31
Potassium 4.4 mmol/L (3.5-5.1) 11/23/24 03:31
Chloride 107 mmol/L (98-107) 11/23/24 03:31
Carbon Dioxide 28 mmol/L (22-30) 11/23/24 03:31
BUN 26 mg/dl (9-20) H 11/23/24 03:31
Creatinine 0.9 mg/dL (0.7-1.3) 11/23/24 03:31
Estimated Creat Clear 113 ml/min 11/23/24 03:31
eGFR > 60.00 11/23/24 03:31
Glucose 107 mg/dl (70-99) H 11/23/24 03:31
Hemoglobin A1c 6.1 % (4.0-5.6) H 11/09/24 08:29
Calcium 8.4 mg/dl (8.4-10.2) 11/23/24 03:31
Ionized Calcium 1.21 mMOL/L (1.15-1.33) 11/19/24 17:00
Magnesium 2.1 mg/dl (1.6-2.3) 11/23/24 03:31
Total Bilirubin 0.8 mg/dl (0.2-1.3) 11/09/24 08:29
Direct Bilirubin 0.3 mg/dl (0.0-0.4) 11/09/24 08:29
AST 27 U/L (17-59) 11/09/24 08:29
ALT 33 U/L (0-50) 11/09/24 08:29
Alkaline Phosphatase 104 U/L (38-126) 11/09/24 08:29
Total Protein 7.4 g/dl (6.3-8.2) 11/09/24 08:29
Albumin 3.8 g/dl (3.5-5.0) 11/09/24 08:29
Urine Color Yellow 11/19/24 07:15
Urine Clarity Clear (Clear) 11/19/24 07:15
Urine pH 7.0 (5.0-9.0) 11/19/24 07:15
Ur Specific Dickson 1.005 (<1.030) 11/19/24 07:15
Urine Ketones Negative (Negative) 11/19/24 07:15
Ur Occult Blood Reflex Negative (Negative) 11/19/24 07:15
Urine Nitrite (Reflex) Negative (Negative) 11/19/24 07:15
Urine Bilirubin Negative (Negative) 11/19/24 07:15
Urine Urobilinogen Negative (Neg - 1+) 11/19/24 07:15
Leukocyte Esterase Rfl Negative (Negative) 11/19/24 07:15
Urine RBC 0-2 /HPF (0-2) 11/19/24 07:15
Urine WBC (Reflex) 0-2 /HPF (0-5) 11/19/24 07:15
Ur Squamous Epith Cells 6-10 /LPF (Few) 11/19/24 07:15
Amorphous Crystals Seen 11/19/24 07:15
Urine Bacteria (Reflex) Few (Negative) A 11/09/24 08:06
Hyaline Casts 0-2 /LPF (0-2) 11/19/24 07:15
Urine Mucus Few 11/19/24 07:15
Urine Glucose Negative (Negative) 11/19/24 07:15
Urine Albumin (Reflex) 1+ (Neg - Trace) A 11/19/24 07:15
Hepatitis C Antibody Negative (Negative) 11/20/24 02:10
Specimen Type Arterial 11/19/24 13:07
POC ABG Comment Post 11/19/24 13:07
POC pH 7.38 (7.35-7.45) 11/19/24 13:07
POC Base Excess -1.0 mmol/L 11/19/24 13:07
POC pO2 256 mmHg (83-108) H 11/19/24 13:07
POC pCO2 40 mmHg (35-48) 11/19/24 13:07
POC HCO3 24 mmol/L (21-28) 11/19/24 13:07
POC Glucose 124 mg/dl (70-99) H 11/23/24 16:55
POC Glucose 160 mg/dl (70-99) H 11/19/24 13:07
POC Sodium 145 mmol/L (136-145) 11/19/24 13:07
POC Potassium 4.0 mmol/L (3.5-5.1) 11/19/24 13:07
POC Ionized Calcium 1.20 mmol/L (1.15-1.33) 11/19/24 13:07
POC Lactate 2.27 mmol/L (0.36-0.75) H 11/19/24 13:07
POC ACT+ 104 Seconds (82-134) 11/19/24 13:04
POC Hemoglobin Calc 11.3 11/19/24 13:07
POC Hematocrit 33 % PCV (42-52) L 11/19/24 13:07
POC Hemodilution Yes 11/19/24 13:07
Blood Type O POS 11/19/24 05:15
Antibody Screen Negative (Negative) 11/09/24 08:29
Crossmatch IS Only See Detail 11/18/24 08:35
�
Diagnostic Results:�as per HPI�
Chest xray - 11/23/24
Lungs: The lungs are clear. No pleural effusion or pneumothorax.
Heart: The heart is mildly enlarged. There is postsurgical change of the sternum and mediastinum
Osseous structures: There is severe right glenohumeral joint osteoarthritis.
Assessment: 73-year-old male with PMH of CAD, hypertension, hyperlipidemia, aom-icjnlaa-uqgbqfzlq diabetes, status post CABG x 4 on 11/19/2024.
�
Plan�
�PT/OT to increase independence with ADLs, improve balance, coordination, endurance, strength, mobility, community reintegration, decreased burden of care on others and family education.�
�
CAD S/P CABG x 4 on 11/19/[address] Bonds: Sternal precautions.� Amiodarone 200 mg 3 times daily, aspirin 81 daily statin Plavix 75 daily monitor incision, pain control.�
HTN: amlodipine 5 mg twice daily, carvedilol 12, lisinopril 5mg qd. monitor closely�
HLD: Rosuvastatin 40 mg
Coronary artery disease�: Aspirin, statin, beta-mo�
NIDDM II: Hgba1c 6.1%. Accu-Cheks, insulin sliding scale, metformin 500 mg twice daily,
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 Follows with ID at [facility]. Needs more surgeries in the future
Chronic Bilateral lower extremity edema: Consider TEDS as able. Increased fluid will cause more force requirement to move lower extremities which requires more strength and increases fatigue.�
Anemia: Postop blood loss. Ferrous sulfate continue to monitor.�
Psych: Psychology consult.� Monitor mood, adjust medications as needed.�
Skin/MASD: monitor for pressure sores/rashes/lesions.�
Pain: acetaminophen or oxycodone 2.5 mg, 5 mg every 4 as needed as needed.� Tylenol 1000 mg 3 times daily, gabapentin 100 mg 3 times daily, Flexeril 5 mg Q8 as needed, Toradol 15 mg IV every 6 as needed,
Nausea: Reglan 10 mg IV every 6 as needed
Bowel: Colace and Senna, PRN bisacodyl.�
Bladder: Time void, PVRs, PRN straight cath.�
GI Prophylaxis: Pantoprazole�
DVT Prophylaxis: Mechanical. please comment on chemoprophylaxis on discharge.
Pulmonary: Incentive spirometry�
Morbid Obesity: Continue to academic counselor patient about diet adjustments to control obesity. Body habitus and increased force to move body and extremities causes further difficulty with functional tasks.�
Safety: Continue to reinforce assistance with all transfers.�
Code Status:� Full code
Dispo�(date/plan/equipment needs): Home with family care.� Social history reviewed.�
�
Functional and Medical Goals:�Modified Independent with ADL�s, ambulation, transfers�
�
Discharge Destination:�Acute inpatient
�
Summary of recommendations: Patient status post CABG x 4 with associated ADL and ambulatory dysfunction with benefit from inpatient acute rehabilitation to increase independence with ADLs, improve balance, coordination, endurance, strength,
mobility, community reintegration, decreased burden of care on others and family education.�
CAD S/P CABG x 4 on 11/19/[address] Bonds: Sternal precautions.� Amiodarone 200 mg 3 times daily, aspirin 81 daily statin Plavix 75 daily monitor incision, pain control.�
HTN: amlodipine 5 mg twice daily, carvedilol 12, lisinopril 5mg qd. monitor closely. �SBP less than 180 and DBP less than 100 to participate in therapy
Pain: acetaminophen or oxycodone 2.5 mg, 5 mg every 4 as needed as needed.� Tylenol 1000 mg 3 times daily, gabapentin 100 mg 3 times daily, Flexeril 5 mg Q8 as needed, Toradol 15 mg IV every 6 as needed.Patient must be stable on oral pain
medications.
DVT Prophylaxis: Mechanical. please comment on chemoprophylaxis restrictions if any on discharge.
Pulmonary: Incentive spirometry�
Bowel/constipation:4-5 days without moving bowels. Add Colace to the Senna, PRN bisacodyl.�Need to have significant bowel movement prior to discharge.
Skin/MASD: Has moisture associated skin changes underneath abdominal fold and right groin more than left. Add desitin or powder. monitor for pressure sores/rashes/lesions.�
Thank you for allowing me to care for your patient. Please contact me with any questions or concerns.

Documented by User: Luan Kilgore MD 11/23/24 23:03
Consultation - Medical
-
Referring Provider:�Dr. Bonds
Chief Complaint:�Status post CABG x 4, debility
�
History of Present Illness:�Patient is 73-year-old male with PMH of (CAD, hypertension, hyperlipidemia, H/o syncope, PVCs ,nnj-fffqdqj-vwdahcbmf diabetes) who had a right hip revision in April 2024 that became septic. He remains on doxycycline.
Requires 2 more surgeries on the right hip in the near future. However, he had an abnormal stress test pre cardiac clearance that required cardiac catheterization demonstrating MV CAD. He underwent CABG x4 on 11/19/[address] Bonds. Post ANTHONY
without regional wall motion abnormality. Brief use of Dobutamine and temporary pacing for initial bradycardia now in sinus rhythm. Subsequently had acute postop blood loss anemia without any transfusion, atelectasis, hypovolemia with subsequent
hypovolemia. He is on amiodarone, aspirin and Plavix. He has some dizziness with ambulation. Per cardiothoracic surgery- suspicious for post op pericarditis, + rub. Requested 2 view chest x-ray. Patient off all drips.
Patient without complaints on floor. Looks forward to starting rehabilitation. Has some persistent right hip loss of motion since having his right hip replacement infected, on suppressive doxycycline. Is able to drive and walk around at home. Has
some home care therapies but did not get a full course secondary to the infection. Denies chest pain at the moment, sob, dizziness. Reports last bowel movement on Friday prior to hospitalization. Voiding in urinal. Denies urinary incontinence.
�
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
Procedure History:�s/p CABG x [address] Bonds on 11/19/24, right hip replacement, right total hip revision in April and became septic, left hip replacement, left knee replacement,
Family History:�Father�, stroke, aortic aneurysm. Mother� at during bypass surgery, 1 brother�of CHF
�
Social History:�
Functional Level Premorbidly:�Assist with ADLs, tub transfers, uses crutches for community mobility, rolling walker for household mobility
Functional Level Currently:�Eating, grooming�set up, toileting, lower extremity care�dependent, bed mobility�sit to stand from bedside max assist x 3, second attempt max assist required 2 people.
�
Tobacco:�Denies�
Alcohol:�Denies�
Drug use:�Denies�
�
Lives with:�Spouse
24-hour assistance available:�Yes
Number of floors:�2
# steps to enter:�3
# steps to second floor: Full flight
Potential First floor set up:�Yes
Driving:�Yes
Occupation:�Retired
�
�
Allergies:�
Allergy/AdvReac Type Severity Reaction Status Date / Time
hydromorphone [From Dilaudid] Allergy Nausea / Verified 11/05/24 11:51
Vomiting
�
Review of Systems:�
Constitutional: (x) abNormal _fatigue
Eye: (x) Normal _
Ear/Nose/Throat: (x) Normal _
Respiratory: (x) Normal _
Cardiovascular: (x) abNormal _s/p cabg, cad
Gastrointestinal: (x) abNormal _constipation
Genitourinary: (x) Normal _
Musculoskeletal: (x) abNormal _right hip prosthetic infection, right hip pain and weakness
Integumentary: (x) Normal _
Neurologic: (x) Normal _
Psychiatric: (x) Normal _
Endocrine: (x) abNormal _DM
Hematologic/Lymphatic: (x) Normal _
Allergic/Immunologic: (x) Normal _
�
Medications:�
Active Current Visit Medication List
Category Date Time Status
0.9% Sodium Chloride 500 ml [Nss] 500 ml Med 11/19/24 13:10 Active
IV CORDIS
Acetaminophen [Tylenol] Med 11/19/24 14:00 Active
1,000 mg PO TID@0600,1400,2200
Acetaminophen [Tylenol] Med 11/19/24 13:10 Active
650 mg PO Q4HPRN PRN
Amiodarone [Pacerone] Med 11/19/24 16:00 Active
200 mg PO TID
Amlodipine [Norvasc] Med 11/20/24 20:00 Active
5 mg PO BID
Ascorbic Acid [Vitamin C] Med 11/20/24 08:00 Active
500 mg PO DAILY
Aspirin Chewable [Low Strength Aspirin] Med 11/20/24 08:00 Active
81 mg PO DAILY
Atorvastatin [Lipitor] Med 11/19/24 18:00 Active
40 mg PO QPM
Bisacodyl [Dulcolax] Med 11/19/24 13:10 Active
10 mg RECTAL DAILYPRN PRN
Carvedilol [Coreg] Med 11/20/24 20:00 Active
12.5 mg PO BID
Clopidogrel Bisulfate [Plavix] Med 11/20/24 08:00 Active
75 mg PO DAILY
Cyclobenzaprine HCl [Flexeril] Med 11/19/24 13:10 Active
5 mg PO Q8HPRN PRN
Dextrose 50%-Water [Dextrose 50% Syringe] Med 11/21/24 12:51 Active
12.5 grams IV [id number] PRN
Docusate W/Senna [Senokot-S] Med 11/19/24 20:00 Active
1 tablet PO Q12
Doxycycline [Vibramycin] Med 11/20/24 08:00 Active
100 mg PO Q12
Ferrous Sulfate [Feosol] Med 11/20/24 08:00 Active
325 mg PO DAILY
Flush (0.9% Sodium Chloride) [Flush (Nss)] Med 11/20/24 09:00 Active
See Dose Instructions IV PER PROTOCOL
Gabapentin [Neurontin] Med 11/19/24 16:00 Active
100 mg PO TID
Glucagon [GlucaGen] Med 11/21/24 12:51 Active
1 mg IM PRN PRN
Insulin Aspart Corrective Mod [Novolog Flexpen-Moderate Med 11/21/24 16:30 Active
Resistance]
See Protocol SC AC
Ketorolac [Toradol] Med 11/20/24 01:02 Active
15 mg IV Q6HPRN PRN
Lidocaine [Lidocaine 4% Patch] Med 11/20/24 08:00 Active
1 patch TOPICAL DAILY
Lisinopril [Zestril] Med 11/22/24 08:00 Active
5 mg PO DAILY
METFORMIN HCl [Glucophage] Med 11/22/24 17:00 Active
500 mg PO BID@0800,1700
Magnesium Hydroxide [Milk of Magnesia] Med 11/19/24 13:10 Active
30 ml PO BIDPRN PRN
Magnesium Oxide Med 11/20/24 08:00 Active
500 mg PO BID
Metoclopramide [Reglan] Med 11/19/24 17:41 Active
10 mg IV Q6HPRN PRN
Oxycodone [Roxicodone] Med 11/19/24 13:10 Active
2.5 mg PO Q4HPRN PRN
Oxycodone [Roxicodone] Med 11/19/24 13:10 Active
5 mg PO Q4HPRN PRN
Pantoprazole [Protonix] Med 11/20/24 08:00 Active
40 mg PO DAILY
Remove Patch [Remove Lidocaine Patch] Med 11/20/24 20:00 Active
1 patch REMOVE DAILY@2000
�
Vitals:�
Temp Pulse Resp BP Pulse Ox
97.8 F 64 18 111/58 96
11/23/24 15:12 11/23/24 15:04 11/23/24 15:12 11/23/24 15:04 11/23/24 15:12
Height 6 ft 3 in
Actual Weight 134.2 kg
Body Mass Index (BMI) 37.0
�
Physical Exam:�
General Appearance/Observation: Well-developed, well-nourished male in no apparent distress.� Lying in bed comfortably
Pain/Comfort Assessment: Incisional pain- sternal
Mood/Affect: Appropriate, pleasant�
Integumentary/Operative Site:�Sternal and drain sites with dressings without drainage, right upper thigh with ecchymosis, right medial leg vein graft site with glue healing well
-abdominal fold and right groin with redness�
�� Pressure Ulcer Evaluation: Not visualized due to teds and extra socks
��
Eyes: Conjunctiva/Lids: normal. Mild ptosis on the left� Pupils: pupils equal round and reactive to light and Accommodation�
Ears/Nose/Throat: oral mucosa moist,� throat clear.������������ Lips/Teeth/Gums: normal�
Neck: No muscle spasm or tenderness�
Cardiovascular: Heart: regular, no murmur�
Pulses: dorsalis pedis 1+ bilaterally�
Respiratory: Respiratory Effort/Chest Expansion: normal������� Auscultation: Clear to auscultation bilaterally�
Gastrointestinal: abdomen not tender, no distension, girth, obese, normal abdominal bowel sounds
Genitourinary: No Shay�
Extremities:�Edema: right leg/foot edema more than LLE�Cyanosis: None�Trophic�changes: None
Neurology Exam:
Orientation: Alert, Oriented to self, Time, Place�
Memory: Intact for immediate concerns
Comprehension: Intact
Two step command: Intact
Naming: Intact
Cranial Nerves:
�� CNII:�Pupillary light reflex: Intact����Visual Field: Intact
�� CN III, IV, : Extraocular muscles: Intact
�� CN V:�Facial Sensation�at�Forehead: Intact,�Maxilla: Intact,�Mandible: Intact
�� CN VII:�Facial movement: Symmetric
�� CN VIII:�Hearing: Normal
�� CN IX/X:�Speech & swallow: Normal,�Position of Uvula: Midline
�� CN XI:�Shoulder shrug: Symmetric
�� CN XII:�Tongue protrusion: Midline
Sensory:
�� Light touch: Intact in bilateral upper and lower extremities
�
�
Reflexes:
�� Biceps: 12 bilaterally
�� Brachioradialis: 2 bilaterally
�� Triceps: 2 bilaterally
�� Patellar: 0 bilaterally
�� Achilles: 0 bilaterally
�� Babinski: None
�� Clonus: None
�� Ashlyn: Negative bilaterally�
Cerebellar: Dysmetria/Ataxia: None�
Musculoskeletal:Motor: (Manual muscle scale 0-5)�
Muscle SA EF WE EE FF FA HF KE DF EHL PF
Right� 4 4 4 5 5 2 2 4 5 4
Left 4 4 4 5 5 4 4 5 5 5
�
Tone: Normal in all extremities�
Range of Motion: Passively within normal limits in all extremities�, deferred bilateral upper extremity due to recent cardiac surgery. Limited ROM of right ankle due to h/o fx
�
Lab Results
Labs
WBC 11.0 10^3/uL (4.8-10.8) H 11/23/24 03:31
RBC 3.88 10^6/uL (4.70-6.10) L 11/23/24 03:31
Hgb 10.2 g/dL (13.0-18.0) L 11/23/24 03:31
Hct 31.6 % (39.0-52.0) L 11/23/24 03:31
MCV 81.4 fL (80.0-94.0) 11/23/24 03:31
MCH 26.3 pg (27.0-31.0) L 11/23/24 03:31
MCHC 32.3 g/dL (33.0-37.0) L 11/23/24 03:31
RDW 17.6 % (11.5-14.5) H 11/23/24 03:31
Plt Count 200 10^3/uL (130-400) 11/23/24 03:31
MPV 10.4 fL (7.4-10.4) 11/23/24 03:31
Abs Immat Gran (auto) 0.1 10^3/uL (0-0.05) H 11/09/24 08:29
Absolute Neuts (auto) 6.6 10^3/uL (1.4-6.5) H 11/09/24 08:
Absolute Lymphs (auto) 1.7 10^3/uL (1.2-3.4) 11/09/24 08:
Absolute Monos (auto) 0.6 10^3/uL (0.1-0.6) 11/09/24 08:
Absolute Eos (auto) 0.5 10^3/uL (0-0.7) 11/09/24 08:
Absolute Basos (auto) 0.1 10^3/uL (0-0.2) 11/09/24 08:
Immature Gran % 1.4 % (0-0.5) H 11/09/24 08:
Neutrophils % 69.1 % (42.2-75.2) 11/09/24 08:
Lymphocytes % 17.4 % (20.5-51.1) L 11/09/24 08:
Monocytes % 6.1 % (1.7-9.3) 11/09/24 08:
Eosinophils % 5.3 % (0-6) 11/09/24 08:
Basophils % 0.7 % (0-2) 11/09/24 08:
Nucleated RBC % 0 % (-) 11/09/24 08:29
PT 17.6 Sec (11.4-14.6) H 11/19/24 14:13
INR 1.42 11/19/24 14:13
APTT 35.3 Sec (23.4-35.0) H 11/19/24 14:13
pH 7.36 (7.35-7.45) 11/19/24 17:00
pCO2 40 mmHg (35-48) 11/19/24 17:00
pO2 79 mmHg (83-108) L 11/19/24 17:00
HCO3 22.6 mmol/L (21-28) 11/19/24 17:00
Base Excess -2.7 mmol/L 11/19/24 17:00
ABG O2 Sat (Measured) 97.9 % (94-98) 11/19/24 17:00
POC ABG O2 Sat (Calc) 99.9 % (94-98) H 11/19/24 13:07
Mixed VBG O2 Saturation 67.8 % 11/20/24 07:50
Sodium 138 mMOL/L (136-145) 11/19/24 14:13
Potassium 4.1 mMOL/L (3.5-5.1) 11/19/24 17:00
O2 Delivery Level 11/19/24 17:00
Sodium 141 mmol/L (135-145) 11/23/24 03:31
Potassium 4.4 mmol/L (3.5-5.1) 11/23/24 03:31
Chloride 107 mmol/L (98-107) 11/23/24 03:31
Carbon Dioxide 28 mmol/L (22-30) 11/23/24 03:31
BUN 26 mg/dl (9-20) H 11/23/24 03:31
Creatinine 0.9 mg/dL (0.7-1.3) 11/23/24 03:31
Estimated Creat Clear 113 ml/min 11/23/24 03:31
eGFR > 60.00 11/23/24 03:31
Glucose 107 mg/dl (70-99) H 11/23/24 03:31
Hemoglobin A1c 6.1 % (4.0-5.6) H 11/09/24 08:29
Calcium 8.4 mg/dl (8.4-10.2) 11/23/24 03:31
Ionized Calcium 1.21 mMOL/L (1.15-1.33) 11/19/24 17:00
Magnesium 2.1 mg/dl (1.6-2.3) 11/23/24 03:31
Total Bilirubin 0.8 mg/dl (0.2-1.3) 11/09/24 08:29
Direct Bilirubin 0.3 mg/dl (0.0-0.4) 11/09/24 08:29
AST 27 U/L (17-59) 11/09/24 08:29
ALT 33 U/L (0-50) 11/09/24 08:29
Alkaline Phosphatase 104 U/L (38-126) 11/09/24 08:
Total Protein 7.4 g/dl (6.3-8.2) 11/09/24 08:
Albumin 3.8 g/dl (3.5-5.0) 11/09/24 08:29
Urine Color Yellow 11/19/24 07:15
Urine Clarity Clear (Clear) 11/19/24 07:15
Urine pH 7.0 (5.0-9.0) 11/19/24 07:15
Ur Specific Dickson 1.005 (<1.030) 11/19/24 07:15
Urine Ketones Negative (Negative) 11/19/24 07:15
Ur Occult Blood Reflex Negative (Negative) 11/19/24 07:15
Urine Nitrite (Reflex) Negative (Negative) 11/19/24 07:15
Urine Bilirubin Negative (Negative) 11/19/24 07:15
Urine Urobilinogen Negative (Neg - 1+) 11/19/24 07:15
Leukocyte Esterase Rfl Negative (Negative) 11/19/24 07:15
Urine RBC 0-2 /HPF (0-2) 11/19/24 07:15
Urine WBC (Reflex) 0-2 /HPF (0-5) 11/19/24 07:15
Ur Squamous Epith Cells 6-10 /LPF (Few) 11/19/24 07:15
Amorphous Crystals Seen 11/19/24 07:15
Urine Bacteria (Reflex) Few (Negative) A 11/09/24 08:06
Hyaline Casts 0-2 /LPF (0-2) 11/19/24 07:15
Urine Mucus Few 11/19/24 07:15
Urine Glucose Negative (Negative) 11/19/24 07:15
Urine Albumin (Reflex) 1+ (Neg - Trace) A 11/19/24 07:15
Hepatitis C Antibody Negative (Negative) 11/20/24 02:10
Specimen Type Arterial 11/19/24 13:07
POC ABG Comment Post 11/19/24 13:07
POC pH 7.38 (7.35-7.45) 11/19/24 13:07
POC Base Excess -1.0 mmol/L 11/19/24 13:07
POC pO2 256 mmHg (83-108) H 11/19/24 13:07
POC pCO2 40 mmHg (35-48) 11/19/24 13:07
POC HCO3 24 mmol/L (21-28) 11/19/24 13:07
POC Glucose 124 mg/dl (70-99) H 11/23/24 16:55
POC Glucose 160 mg/dl (70-99) H 11/19/24 13:07
POC Sodium 145 mmol/L (136-145) 11/19/24 13:07
POC Potassium 4.0 mmol/L (3.5-5.1) 11/19/24 13:07
POC Ionized Calcium 1.20 mmol/L (1.15-1.33) 11/19/24 13:07
POC Lactate 2.27 mmol/L (0.36-0.75) H 11/19/24 13:07
POC ACT+ 104 Seconds (82-134) 11/19/24 13:04
POC Hemoglobin Calc 11.3 11/19/24 13:07
POC Hematocrit 33 % PCV (42-52) L 11/19/24 13:07
POC Hemodilution Yes 11/19/24 13:07
Blood Type O POS 11/19/24 05:15
Antibody Screen Negative (Negative) 11/09/24 08:29
Crossmatch IS Only See Detail 11/18/24 08:35
�
Diagnostic Results:�as per HPI�
Chest xray - 11/23/24
Lungs: The lungs are clear. No pleural effusion or pneumothorax.
Heart: The heart is mildly enlarged. There is postsurgical change of the sternum and mediastinum
Osseous structures: There is severe right glenohumeral joint osteoarthritis.
Assessment: 73-year-old right-handed male with PMH of CAD, hypertension, hyperlipidemia, [id number] diabetes, status post CABG x 4 on 11/19/2024 with ADL and ambulatory dysfunction.
�
Plan�
�PT/OT to increase independence with ADLs, improve balance, coordination, endurance, strength, mobility, community reintegration, decreased burden of care on others and family education.�
�
CAD S/P CABG x 4 on 11/19/[address] Bonds: Sternal precautions.� Amiodarone 200 mg 3 times daily, aspirin 81 daily statin Plavix 75 daily monitor incision, pain control.�
HTN: amlodipine 5 mg twice daily, carvedilol 12, lisinopril 5mg qd. monitor closely�
HLD: Rosuvastatin 40 mg
Coronary artery disease�: Aspirin, statin, beta-mo�
NIDDM II: Hgba1c 6.1%. Accu-Cheks, insulin sliding scale, metformin 500 mg twice daily,
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 Follows with ID at [facility]. Plan for initial antibiotic spacer surgery followed by replacement
Chronic Bilateral lower extremity edema: Consider TEDS as able. Increased fluid will cause more force requirement to move lower extremities which requires more strength and increases fatigue.�
Anemia: Postop blood loss. Ferrous sulfate continue to monitor.�
Psych: Psychology consult.� Monitor mood, adjust medications as needed.�
Skin/MASD: monitor for pressure sores/rashes/lesions.�
Pain: acetaminophen or oxycodone 2.5 mg, 5 mg every 4 as needed as needed.� Tylenol 1000 mg 3 times daily, gabapentin 100 mg 3 times daily, Flexeril 5 mg Q8 as needed, Toradol 15 mg IV every 6 as needed,
Nausea: Reglan 10 mg IV every 6 as needed
Bowel: Colace and Senna, PRN bisacodyl.�
Bladder: Time void, PVRs, PRN straight cath.�
GI Prophylaxis: Pantoprazole�
DVT Prophylaxis: Mechanical. please comment on chemoprophylaxis on discharge, particularly with decreased movement of the right hip.
Pulmonary: Incentive spirometry�
Morbid Obesity: Continue to academic counselor patient about diet adjustments to control obesity. Body habitus and increased force to move body and extremities causes further difficulty with functional tasks.�
Safety: Continue to reinforce assistance with all transfers.�
Code Status:� Full code
Dispo�(date/plan/equipment needs): Home with family care.� Social history reviewed.�
Functional and Medical Goals:�Modified Independent with ADL�s, ambulation, transfers�
Discharge Destination:�Acute inpatient rehabilitation
Attending Statement:
I saw and examined the patient today. Reviewed care plan with patient, therapy, nursing, and physician glass ribbon machine operator assistant. I agree with the above subjective and physical exam, and plan as documented by CATALINA Aranda with adjustments made as necessary. A
total of 60 minutes were spent with the patient preparing for the evaluation, obtaining history, performing examination and evaluation, counseling, data review, case management, care coordination, reordering clerk, and EMR documentation.
�
Summary of recommendations: Patient status post CABG x 4 with associated ADL and ambulatory dysfunction with benefit from inpatient acute rehabilitation to increase independence with ADLs, improve balance, coordination, endurance, strength,
mobility, community reintegration, decreased burden of care on others and family education.�
CAD S/P CABG x 4 on 11/19/[address] Bonds: Sternal precautions.� Amiodarone 200 mg 3 times daily, aspirin 81 daily statin Plavix 75 daily monitor incision, pain control.�
HTN: amlodipine 5 mg twice daily, carvedilol 12, lisinopril 5mg qd. monitor closely. �SBP less than 180 and DBP less than 100 to participate in therapy
Pain: acetaminophen or oxycodone 2.5 mg, 5 mg every 4 as needed as needed.� Tylenol 1000 mg 3 times daily, gabapentin 100 mg 3 times daily, Flexeril 5 mg Q8 as needed, Toradol 15 mg IV every 6 as needed.Patient must be stable on oral pain
medications.
DVT Prophylaxis: Mechanical. please comment on chemoprophylaxis restrictions if any on discharge.
Pulmonary: Incentive spirometry�
Bowel/constipation:4-5 days without moving bowels. Add Colace to the Senna, PRN bisacodyl.�Need to have significant bowel movement prior to discharge.
Skin/MASD: Has moisture associated skin changes underneath abdominal fold and right groin more than left. Add desitin or powder. monitor for pressure sores/rashes/lesions.�
Thank you for allowing me to care for your patient. Please contact me with any questions or concerns.
--- NOTE | 2024-11-23 19:40 | PTCARENOTE ---
Patient received from RN @1900. Patient lying in bed comfortably w/ call morales in reach. AOx3. SR w/ prolonged QT. BP 137/64 HR 67. Heart sounds audible but distant. Lungs clear but diminished in bases bilaterally. POX 97% RA. IS 2000.
Voiding clear yellow urine. Bowel sounds normoactive. No BM. Sternal incision dry and intact. CT dressing clean, dry, and intact. Right leg incision and right groin puncture well approximated w/ surgical adhesive DESIGN TRANSFERRER. Left PIV patent and
intact.
[2024-11-23] MEDS: DULCOLAX 10 MG RECTAL (20:50)
--- NOTE | 2024-11-23 22:00 | PTCARENOTE ---
Small bowel movement pebble x1.
[2024-11-23 23:06] LABS: Glucose - Point of Care 118 mg/dl (70-99)
[2024-11-24] VITALS (9 sets, daily range): BP systolic 97–122; BP diastolic 56–75; PULSE 63–66; O2SAT 98; BMI 37.8
--- NOTE | 2024-11-24 00:13 | W.PN.CT ---
Today's Communication / Plan
-
No major issues overnight. �
Cont. current meds (ASA, Plavix, Lipitor, Amio, Doxycycline for chronic hip infection, Feosol, Protonix, Coreg, Norvasc, Lisinopril)�
Encourage use of IS�
OOB into chair/Ambulate as tolerated/PT/OT f/u�
Awaiting bed at [facility] placement�
Continue outpt abx on DC for chronic infected right hip�
Assessment / Plan
-
- mv-CAD - s/p CABG x 4 (ARVIND to LAD, GSV to D1, GSV to OM1, GSV to RPDA); ELAA by Dr. Bonds on 11/19/24, pod #5
- Post-ANTHONY: Normal LV/RV, stage I DD, mild MR, trace TR; MENDOZA confirmed excluded
- Initially bradycardic requiring temporary pacing w/ dobutamine pt. regained sinus w/ BBB in 60s
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
- EF 55-60%
- Hx syncope
- PVCs
- HTN/HLD
- DM II (HgA1c 6.1)
.- Chronic LE edema
- Class 2 obesity (BMI 37)
- b/l hep replacements
- L knee replacement
- Acute postop blood loss anemia - stable, no transfusion
- Acute postop atelectasis
- Acute postop hypovolemia with subsequent hypervolemia
- Suspected acute postop pericarditis/ +rub
Subjective
-
Date of Service: November 24, 2024
Objective Data
-
PT 17.6 Sec (11.4-14.6) H 11/19/24 14:13
INR 1.42 11/19/24 14:13
APTT 35.3 Sec (23.4-35.0) H 11/19/24 14:13
Vital Signs
Vital Signs
Temp Pulse Resp BP Pulse Ox
98.1 F 63 16 127/67 97
11/23/24 19:25 11/23/24 20:30 11/23/24 19:25 11/23/24 22:56 11/23/24 21:28
CT Intake/Output/Weight
11/23/24 11/23/24 11/24/24
06:59 18:59 06:59
Intake Total 240 / 510 240 / 240
Output Total 900 / 2250 800 / 800
Balance -660 / -1740 -560 / -560
SaO2: 97
Physical Exam
-
General: Awake
Cardiovascular: Regular rate & rhythm
Respiratory: Clear and Equal
Sternum: Stable
Incision: Clean, Dry and Intact
Extremities: No Edema
--- NOTE | 2024-11-24 00:38 | PTCARENOTE ---
Assessment unchanged. VSS. Patient sleeping comfortably w/ call morales in reach. Bed time BG obtained.
--- NOTE | 2024-11-24 04:30 | PTCARENOTE ---
Assessment unchanged. VSS. Patient washed with CHG. Leads changed. Moderate BM noted.
[2024-11-24] MEDS: DESENEX/MITRAZOL/ZEASORB 1 APPLIC TOPICAL ×2 (04:31→08:28)
[2024-11-24 04:53] LABS: Hematocrit 30.9 % (39.0-52.0); Hemoglobin 10.4 g/dL (13.0-18.0); Mean Corp Hgb Conc. 33.7 g/dL (33.0-37.0); Mean Corpuscular Hgb 27.3 pg (27.0-31.0); Mean Corpuscular Volume 81.1 fL (80.0-94.0); Mean Platelet Volume 10.8 fL (7.4-10.4); Platelet Count 289 10^3/uL (130-400); Red Blood Cell Count 3.81 10^6/uL (4.70-6.10); Red Cell Dist. Width 17.8 % (11.5-14.5); White Blood Cell Count 10.9 10^3/uL (4.8-10.8)
[2024-11-24] MEDS: TYLENOL 1000 MG PO (06:39)
[2024-11-24 06:55] LABS: Blood Urea Nitrogen 24 mg/dl (9-20); Calcium 8.4 mg/dl (8.4-10.2); Carbon Dioxide 29 mmol/L (22-30); Chloride 108 mmol/L (98-107); Estimated Creatinine Clearance 112 ml/min; Glucose 116 mg/dl (70-99); Magnesium 2.1 mg/dl (1.6-2.3); Potassium 4.3 mmol/L (3.5-5.1); Sodium 141 mmol/L (135-145); eGFR > 60.00
--- NOTE | 2024-11-24 08:00 | PTCARENOTE ---
pt received from previous RN, oriented, OOB in chair. SR on the monitor, HR 50-70s. SBP 110s. palpable pulses. trace R hand and RLE edema. pt on RA, 97% POX. lungs clear. IS encouraged. pt abdomen s/n, denies n/v. diet tolerated well. voids. x2-3
assist w/ rolling walker. surgical sites intact. PIV. see worklist for VS, I&O, and assessment.
[2024-11-24 08:02] LABS: Glucose - Point of Care 130 mg/dl (70-99)
[2024-11-24] MEDS: NOVOLOG FLEXPEN-MODERATE RESISTANCE SC ×2 (08:04→12:40)
[2024-11-24] MEDS: GLUCOPHAGE 500 MG PO (08:27)
[2024-11-24] MEDS: COREG 12.5 MG PO (08:27)
[2024-11-24] MEDS: PLAVIX 75 MG PO (08:27)
[2024-11-24] MEDS: PROTONIX 40 MG PO (08:27)
[2024-11-24] MEDS: LOW STRENGTH ASPIRIN 81 MG PO (08:27)
[2024-11-24] MEDS: FEOSOL 325 MG PO (08:27)
[2024-11-24] MEDS: PACERONE 200 MG PO (08:28)
[2024-11-24] MEDS: VITAMIN C 500 MG PO (08:28)
[2024-11-24] MEDS: SENOKOT-S 1 TABLET PO (08:28)
[2024-11-24] MEDS: VIBRAMYCIN 100 MG PO (08:28)
[2024-11-24] MEDS: MAGNESIUM OXIDE 500 MG PO (08:28)
[2024-11-24] MEDS: NEURONTIN 100 MG PO (08:28)
[2024-11-24] MEDS: NORVASC 5 MG PO (08:28)
--- NOTE | 2024-11-24 08:41 | W.PN.CD ---
Today's Communication / Plan
-
Furosemide 40 mg IV x1 and monitor.
GLP-1 analog as an outpatient.
Awaiting disposition to [facility].
Impression / Plan
-
Impression/Plan: 73M with CAD, HTN, HLD, & NIDDM, who had an abnormal stress test prior to orthopedic surgery (right hip revision R/T infection) which was abnormal. He had known CAD. Cardiac catheterization demonstrated MVCAD. He is here for CABG.
#CAD
-Chronic, progressive.
-S/P CABG x 4 (ARVIND to LAD, GSV to D1, GSV to OM1, GSV to RPDA) and LAAE (#40 AtriClip) by Dr. Bonds on 11/19/2024.
-ANTHONY without RWMA.
-Brief post-op dobutamine, now off.
-Initially bradycardic requiring temporary pacing with dobutamine, now in sinus
-Continue atorvastatin, amiodarone, ASA, clopidogrel.
-Redose furosemide 40 mg IV x1 today and monitor. Amlodipine may exacerbate LE edema.
#HTN
-Chronic, stable.
-Continue amlodipine 5 mg, carvedilol 12.5 mg BID and lisinopril 5 mg.
#HLD
-Chronic, stable.
-Continue rosuvastatin 40mg.
-Goal LDL < 55.
#NIDDM
-Chronic, stable.
-Hgba1c 6.1%.
-Continue metformin.
#Obesity
-Chronic, stable.
-BMI 37. He would benefit from weight loss.
-He has an indication for GLP-1 analog (DM, CAD, weight loss).
Outpatient search marketing analyst: Dr. Kilgore
Subjective/Interval History:
Weight up 137 kg (134.2 --> 137.2).
SaO2 = 97% on RA.
BP controlled.
PM&R consulted, recommending acute inpatient rehab.
DATA:
Cardiac Catheterization, 10/18/2024:
CONCLUSIONS
1. Right dominant circulation with an anterior takeoff of the RCA requiring an AL-1 catheter for engagement, and 90% lesion in the ostium of the right coronary artery, 75% lesion in the proximal circumflex, a 40% lesion in the origin of the upper
branch of OM1, subtotal occlusion of the terminal AV groove circumflex and an occlusive, tubular 50% lesion in the mid LAD (IFR = 0.80).
2. Top normal filling pressures (LVEDP = 15 mmHg at 135.6 kg).
Echocardiogram, 11/15/2024:
CONCLUSIONS
Contrast was used.
Normal left ventricular systolic function. LV ejection fraction is 55-60%.
Moderate concentric left ventricular hypertrophy.
Aortic sclerosis without stenosis.
Enlarged right ventricular size. Normal right ventricular systolic function.
Ectatic proximal ascending aorta: 3.9 cm.
No prior study available for comparison.
Transesophageal Echocardiogram, 11/19/2024:
CONCLUSIONS
Normal left ventricular size and systolic function, mild LVH, stage I diastolic
dysfunction.
Mild mitral regurgitation.
The aorta has atheroma less than 5 mm and mild to moderate calcifications.
Normal right ventricular size and function.
POST OPERATIVE FINDINGS
Status post CABG x 4, the left ventricle is vigorously analilia, EF 60 to
65%. The patient is on low-dose dobutamine, 3 mcg/kg/min. No regional wall
motion abnormalities.
Status post left atrial appendage exclusion, the clip is well-seated, no flow
seen through the left atrial appendage remnant.
Normal right ventricular size and function.
Mild MR, unchanged from preop.
Trace TR.
CABG, 11/19/2024:
PROCEDURES:
1. Median sternotomy
2. Takedown of ARVIND (narrow pedicle)
3. RLE GSV harvest/prep
4. CABG x 4 (ARVIND to LAD, GSV to D1, GSV to OM1, GSV to RPDA)
5. ELAA.
Physical Exam
Vital Signs/Labs
Vital Signs
Temp Pulse Resp BP Pulse Ox
36.6 C 64 18 111/64 97
11/24/24 08:00 11/24/24 08:27 11/24/24 08:00 11/24/24 08:28 11/24/24 08:00
11/22/24 11/23/24 11/24/24
11:59 11:59 11:59
Actual Weight 137.8 kg 134.2 kg 137.2 kg
11/24/24 04:24
11/24/24 05:54
PT 17.6 Sec (11.4-14.6) H 11/19/24 14:13
INR 1.42 11/19/24 14:13
APTT 35.3 Sec (23.4-35.0) H 11/19/24 14:13
Magnesium 2.1 mg/dl (1.6-2.3) 11/24/24 05:54
Physical Exam
Constitutional: No acute distress and Comfortable
EENT: Anicteric and Moist mucous membranes
Cardiovascular: Rhythm & rate is regular, Pedal edema is absent, JVD pressure is normal, S1S2 is normal and Murmur/rub/gallop absent
Respiratory: Respiratory effort normal, Lungs clear to auscul., Wheeze Absent, Crackles Absent and Rhonchi Absent
GI: Soft, Distention absent, Flat, Non tender and Normal bowel sounds
Neuro/Psych: AO x 3
Data Reviewed
-
Date of Service: November 24, 2024
Medical Decision Making: Reviewed Test Results, Independent Historian Assessment and Test Interpretation
EKG: Tracing Personally Visualized and interpreted and Report Reviewed by me
Echo: Report Reviewed by me
X-Ray/CT/US/MRI/NUC/PET: Image Personally Visualized and interpreted and Report Reviewed by me
Medical Tests (PFT, Pathology etc): Report Reviewed by me
Labs: Labs Reviewed by me
Old Records: Reviewed
--- NOTE | 2024-11-24 08:48 | CM ---
Reviewed chart. Met with Mr. Nielsen to review discharge plans. TT to [facility]. liaison to confirm bed available for today. Bed is available today. The report number for [facility] is ([phone]). He is agreeable to going to [facility]. at [place]
for Rehab. Prior to admission he resides with his spouse in a two story home with three steps to enter. He has a first floor set-up. Prior to admission he ambulates with crutches. He has crutches, walker, single point cane and shower chair at home.
Medical work-up in progress. The discharge plan is to go to [facility] At [facility] when medically stable.
--- NOTE | 2024-11-24 09:22 | W.DCSUMMARY ---
Discharge Summary
Discharge Data
Date of Admission: 11/19/24
Date of Discharge: 11/24/24
Total time spent discharging patient (in min): 45
-
Pending Results: No
Hospital Course
Primary care physician:
Dr. John
Outpatient cloth pattern maker:
Dr. Lang
Inpatient consultants:
Java Developer Architect, CBC, physiatry
Procedures:
1. CABG x 4 (ARVIND to LAD, GSV to D1, GSV to OM1, GSV to RPDA)
Primary Diagnosis:
1. Multivessel CAD
Secondary Diagnoses:
1. 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
2. Diabetes mellitus type 2
3. obesity
4. hypertension
5. hyperlipidemia
HPI: 73-year-old male who was having syncope was found to have an abnormal stress test and presented electively on 11/19 for a CABG with Dr. Bonds.
Hospital course: Patient was electively admitted on 11/[address] Bonds. Postoperatively he returned to the CVICU on dobutamine, Precedex, and insulin infusions. Patient was given 250 mL of lactated Ringer's Precedex was weaned off and
patient was extubated by 1720. Due to the patient's chronic infection patient was continued on doxycycline. Dobutamine was weaned to 2. On 11/20 postoperative day 1 patient was weaned off all infusions and he was hypertensive throughout the day and
was started on Coreg along with amlodipine. Physical therapy was consulted. On 11/21 postoperative day 2, patient's chest tubes were discontinued and transition to telemetry after infusion was weaned off. On 11/22 postoperative day 3 patient's Cordis
was discontinued and patient's lisinopril was started at 5 mg daily along with metformin. Patient was diuresed with 40 mg of Lasix with good output. On 11/23 postoperative day 4 patient was deemed stable for discharge to rehab however there was no
bed at [facility]. 2 view chest x-ray remained stable. On 11/24 postoperative day 5 patient remained stable for discharge to rehab and was continued on his doxycycline without issue.
Home medication changes:
see below
Discharge Plan
-
Patient Disposition: Acute Rehab Facility
Discharge Diagnosis/Procedures: CABG x 4, clip
Condition: Fair
Diet: Low Cholesterol, Low Sodium and Diabetic, Carb Controlled
Activity: No strenuous activity
Driving Restrictions: Not until seen by your Dr
Bathing Restrictions: OK to Shower
Other Services: Cardiac Rehab
Specialty Instructions: Weigh Daily- Call MD for wt gain/loss 3 lbs overnight/5 lbs in 1 week
Activity Restrictions/Additional Instructions:
Please call [facility] when you are ready to be scheduled. P: [phone]
ACTIVITY:
-No strenuous activity: no heavy lifting, pushing, pulling anything over 15 pounds for one month
-continue to use stairs as tolerated
DRIVING RESTRICTIONS:
-No driving for one month or until approved by your surgeon
WOUND CARE:
-Shower daily. Use soap & water.
-No lotions, creams or powders on incision area.
DIET:
-continue a low fat/low cholesterol diet.
-IF you are diabetic, continue carb controlled diet.
CARDIAC REHAB:
-Please make appointment to start in 5-6 weeks with your local hospital program. (See Cardiac Rehabilitation Discharge Booklet).
SPECIALTY INSTRUCTIONS:
-Weigh yourself daily. Call your physician for any weight gain/loss of 3 lbs overnight or 5 lbs in one week.
-REPORT any clicking noise or uneven appearance of your sternum to your surgeon immediately.
-If you smoke, you are instructed to quit. The [facility] smoking hotline phone number is [phone]
Referrals:
Roseanna Diggs PA-C [Non-Admitting Privileges] - 01/03/25 1:30 pm
Geovany John DO [Family Provider] - in four to six weeks (Please make an appointment in four to six weeks.)
Matthew Bonds MD [Active] - 12/21/24 2:30 pm
Additional Discharge Medication Instructions: Please continue plavix and protonix for 30 days total
Prescriptions:
New
cyclobenzaprine 10 mg Tablet
5 mg PO Q8HPRN PRN (Reason: muscle spasm) Qty: 0 0RF
clopidogrel 75 mg Tablet
75 mg PO DAILY Qty: 30 0RF
lisinopril 5 mg Tablet
5 mg PO DAILY Qty: 0 0RF
gabapentin 100 mg Capsule
100 mg PO TID Qty: 0 0RF
oxycodone 5 mg Tablet
2.5 mg PO Q4HPRN PRN (Reason: severe pain) Qty: 15 0RF
pantoprazole 40 mg Tablet,Delayed Release (Dr/Ec)
40 mg PO DAILY Qty: 30 0RF
Continued
carvedilol 12.5 MG tablet
12.5 mg PO BID
aspirin 81 MG tablet,delayed release (DR/EC)
81 mg PO DAILY
metformin 500 MG tablet
500 mg PO BID Qty: 0 0RF
amlodipine 5 mg Tablet
5 mg PO BID
acetaminophen 500 mg Tablet
500 mg PO Q6H PRN (Reason: pain)
triamcinolone acetonide 0.1 % Cream
1 applic TOPICAL BIDPRN PRN (Reason: ECZEMA)
ascorbic acid (vitamin C) [Vitamin C] 500 mg Tablet
500 mg PO DAILY
cephalexin 500 mg Capsule
500 mg PO DAILYPRN PRN (Reason: dental procedures)
cholecalciferol (vitamin D3) [Vitamin D3] 25 mcg (1,000 unit) Capsule
25 mcg PO QPM
atorvastatin 40 mg tablet
40 mg PO QPM Qty: 90 3RF
docusate sodium [Stool Softener] 100 mg Tablet
100 mg PO PRN PRN (Reason: CONSTIPATION)
doxycycline hyclate 100 mg Tablet
100 mg PO BID Qty: 0 0RF
Held
diclofenac sodium 75 MG tablet,delayed release (DR/EC)
75 mg PO BID
Hold Instructions: Resume on 12/08/24.
Discontinued
lisinopril 40 MG tablet
40 mg PO DAILY
diphenhydramine HCl 50 mg Capsule
50 mg PO HS PRN (Reason: sleep)
nitroglycerin 0.4 mg tablet, sublingual
0.4 mg sublingual [id number] PRN (Reason: chest pain) Qty: 25 2RF
Patient Comments:
pt states new rx and Never had to take medication
Turmeric-Curcumin Supplement
1 cap PO DAILY
Discharge Orders:
Discharge Patient (As Directed); Ordered 11/24/24
Ordered By: Ayesha Underwood
Care Plan Goals
Care Plan Goals:
Problem: Readiness for enhanced knowledge related to diagnosis and treatment plan
Goal: Understand your diagnosis and treatment plan needs, including medications if applicable.
Instructions: Know your diagnosis, underlying causes and treatment plan options, including medications if applicable. Consult with your health care team to learn about your diagnosis and treatment plan, including medications if applicable.
Discharge Date and Time
Print Language: YAKUT
[2024-11-24] MEDS: ZESTRIL 5 MG PO (09:45)
[2024-11-24] MEDS: NSS IV (11:25)
[2024-11-24 12:08] LABS: Glucose - Point of Care 112 mg/dl (70-99)
--- NOTE | 2024-11-24 12:30 | PTCARENOTE ---
pt VSS, no changes in assessment. CT sutures x4 removed per [employer], METALLURGICAL ENGINEERING TEACHER. pt OOB to chair w/ 2 person assist. voids in urinal. [facility]
--- NOTE | 2024-11-24 13:22 | PTCARENOTE ---
pt had large BM, voided. IV and tele dc'd. pt transported to [facility] via stretcher by volunteer. pt left w/ all belongings.
== END 2024-11-24 13:34 | DRG 236 ==
LOC: CVICU 05:00
PROVIDERS: Anesthesiology; Nurse Practitioner; Physician Assistant Medical; ADMITTING PHYSICIAN Thoracic Surgery (Cardiothoracic Vascular Surgery); CONSULT PHYSICIAN Internal Medicine Critical Care Medicine; CONSULT PHYSICIAN Physical Medicine & Rehabilitation; FAMILY PHYSICIAN Family Medicine
PROC: B24BZZ4 Ultrasonography of Heart with Aorta, Transesophageal (ICD-10-PCS; 2024-11-19)
PROC: 02L70CK Occlusion of Left Atrial Appendage with Extraluminal Device, Open Approach (ICD-10-PCS; 2024-11-19)
PROC: 02100ZC Bypass Coronary Artery, One Artery from Thoracic Artery, Open Approach (ICD-10-PCS; 2024-11-19)
PROC: 06BP4ZZ Excision of Right Saphenous Vein, Percutaneous Endoscopic Approach (ICD-10-PCS; 2024-11-19)
PROC: 5A1221Z Performance of Cardiac Output, Continuous (ICD-10-PCS; 2024-11-19)
PROC: 021209W Bypass Coronary Artery, Three Arteries from Aorta with Autologous Venous Tissue, Open Approach (ICD-10-PCS; 2024-11-19)
DX: I25.10 Atherosclerotic heart disease of native coronary artery without angina pectoris (principal); T84.51XA Infection and inflammatory reaction due to internal right hip prosthesis, initial encounter; D62 Acute posthemorrhagic anemia; J98.11 Atelectasis; E11.9 Type 2 diabetes mellitus without complications; E78.5 Hyperlipidemia, unspecified; Y83.1 Surgical operation with implant of artificial internal device as the cause of abnormal reaction of the patient, or of later complication, without mention of misadventure at the time of the procedure; I44.7 Left bundle-branch block, unspecified; I10 Essential (primary) hypertension; E86.1 Hypovolemia; E87.70 Fluid overload, unspecified; E66.812 Obesity, class 2; Z68.37 Body mass index [BMI] 37.0-37.9, adult; Z79.82 Long term (current) use of aspirin; Z79.84 Long term (current) use of oral hypoglycemic drugs; Z79.899 Other long term (current) drug therapy; Z82.49 Family history of ischemic heart disease and other diseases of the circulatory system
CPT/HCPCS: 36415; 71045; 71046; 80048; 80053; 81003; 81015; 82248; 82330; 82565; 82805; 82810; 82947; 82962; 83036; 83735; 84132; 84302; 84520; 85014; 85018; 85025; 85027; 85049; 85610; 85730; 86803; 86850; 86900; 86901; 86920; 87070; 87086; 93005; 93312; 93320; 93325; 93880; 93970; 94002; 94010; 97110; 97116; 97163; 97167; 97530; 97535